=== PATIENT | female | born 1975 | race Caucasian/White ===

== ENCOUNTER → 2016-09-26 | Outpatient (CLI) | payer OTHER ==
[~2016-09-26] MED LIST: ALBUAER2 INH; CARB200T3 PO; CLON1TAB3 PO; ERGO500037 PO; FLUO40CA8 PO; SUMA100T16 PO; TRAZ50TA35 PO; WARF7.5T PO
[2016-09-26 14:36] LABS: BASO % 0.6 %; BASO ABS # 0.03 K/uL (0-0.2); COMPLETE YES; HEMATOCRIT 36.4 % (37-47); LYMPH % 38.7 %; LYMPH ABS # 1.96 K/uL (1.2-3.4); MEAN CELL VOLUME 96.8 fL (80-100); MEAN CORPUSCULAR HEMOGLOBIN 33.2 pg (25-34); MEAN CORPUSCULAR HGB CONC 34.3 g/dl (32-36); MEAN PLATELET VOLUME 9.2 fL (7.4-10.4); MONO % 9.1 %; NEUT % 47.6 %; PLATELET COUNT 303 K/uL (130-400); RED BLOOD COUNT 3.76 M/uL (4.2-5.4); WHITE BLOOD COUNT 5.06 K/uL (4.8-10.8)
[2016-09-26 14:52] LABS: ALT/SGPT 21 U/L (12-78); AST/SGOT 22 U/L (15-37); BLOOD UREA NITROGEN 9 mg/dl (7-18); BUN/CREATININE RATIO 11.2 (10-20); CALCIUM 7.8 mg/dl (8.5-10.1); CARBON DIOXIDE 28 mmol/L (21-32); CHLORIDE 106 mmol/L (98-107); CREATININE 0.76 mg/dl (0.60-1.20); GLUCOSE 83 mg/dl (70-99); POTASSIUM 3.9 mmol/L (3.5-5.1); SODIUM 140 mmol/L (136-145); TRIGLYCERIDES 111 mg/dl (0-150); VERY LOW DENSITY LIPOPROT CALC 22 mg/dl
[2016-09-26 15:01] LABS: ALB/GLOB RATIO 0.9 (0.9-2); ALKALINE PHOSPHATASE 52 U/L (45-117); CHOLESTEROL 217 mg/dl (0-200); CHOLESTEROL/HDL RATIO 2.6; FERRITIN 17.2 ng/ml (8.0-388.0); HDL CHOLESTEROL 82 mg/dl; LDL CHOLESTEROL CALCULATED 113 mg/dl; TOTAL IRON BINDING CAPACITY 254 mcg/dl (250-450)
== END | disposition home or self-care (01) ==
LOC: C.LAB1850 13:18
PROVIDERS: ATTEND Family Medicine
DX: E03.9 Hypothyroidism, unspecified (principal); E55.9 Vitamin D deficiency, unspecified; E78.5 Hyperlipidemia, unspecified; M79.7 Fibromyalgia; D64.9 Anemia, unspecified

== ENCOUNTER → 2017-01-15 | Outpatient (CLI) | payer OTHER ==
--- NOTE | 2017-01-15 17:47 | DIAGNOSTIC IMAGING REPORT ---
CHEST AND ABDOMEN 2 VIEWS HISTORY: Generalized abdominal pain. COMPARISON: Chest 01/25/2015. FINDINGS: The lungs are clear. The cardiomediastinal silhouette is within normal limits. There is no pneumoperitoneum or pneumatosis. The bowel gas pattern is unremarkable. No evidence for bowel obstruction. No pathologic calcifications. Small to moderate amount of well-formed stool seen within the colon. IMPRESSION: No acute cardiopulmonary process. No evidence for bowel obstruction. Electronically signed by: Shaun Chavira M.D. 01/15/2017 5:45 PM Dictated Date/Time: 01/15/2017 5:43 PM
== END | disposition home or self-care (01) ==
LOC: C.RADBC 16:21
PROVIDERS: ATTEND Family Medicine
DX: R10.9 Unspecified abdominal pain (principal); K59.00 Constipation, unspecified

== ENCOUNTER → 2017-02-05 | Outpatient (CLI) | payer OTHER ==
[2017-02-10 16:38] LABS: B2 GLYCOPROTEIN IGA <9 SAU (<=20); B2 GLYCOPROTEIN IGG <9 SGU (<=20); B2 GLYCOPROTEIN IGM <9 SMU (<=20); LUPUS ANTICOAGULANT** TC36573X Negative (Negative)
== END | disposition home or self-care (01) ==
LOC: C.LAB1850 16:03
PROVIDERS: ATTEND Nurse Practitioner Family
DX: D68.9 Coagulation defect, unspecified (principal)

== ENCOUNTER 2018-02-04 18:31 | Emergency (ER) | payer OTHER ==
[~2018-02-04] VITALS: Ht 167.6 cm; Wt 77.4 kg
[2018-02-04 18:38] VITALS: Ht 167.6 cm; Wt 77.4 kg
[2018-02-04] MEDS ORDERED: FLUO20CA20 PO (19:55)
[2018-02-04] MEDS ORDERED: QUET1TAB30 PO (19:55)
[2018-02-04] MEDS ORDERED: LYR50 PO (19:55)
[2018-02-04] MEDS ORDERED: VNTHFA/IN INH (19:55)
[2018-02-04] MEDS ORDERED: TRAZ1TAB52 PO (19:55)
[2018-02-04] MEDS ORDERED: FERR1TAB13 PO (19:55)
[2018-02-04 20:01] LABS: ALBUMIN 3.5 gm/dl (3.4-5.0); ALKALINE PHOSPHATASE 53 U/L (45-117); ALT/SGPT 17 U/L (12-78); AST/SGOT 11 U/L (15-37); BLOOD UREA NITROGEN 10 mg/dl (7-18); CALCIUM 8.1 mg/dl (8.5-10.1); CARBON DIOXIDE 31 mmol/L (21-32); GLUCOSE 79 mg/dl (70-99); POTASSIUM 3.7 mmol/L (3.5-5.1); SODIUM 137 mmol/L (136-145); TOTAL PROTEIN 7.1 gm/dl (6.4-8.2)
[2018-02-04 20:33] LABS: BASO % 0.5 %; BASO ABS # 0.03 K/uL (0-0.2); EOS % 3.6 %; EOS ABS # 0.22 K/uL (0-0.5); HEMATOCRIT 34.5 % (37-47); HEMOGLOBIN 11.8 g/dL (12.0-16.0); IG# 0.01 K/uL (0.00-0.02); LYMPH % 32.3 %; MEAN CELL VOLUME 96.9 fL (80-100); MEAN CORPUSCULAR HEMOGLOBIN 33.1 pg (25-34); MEAN CORPUSCULAR HGB CONC 34.2 g/dl (32-36); MEAN PLATELET VOLUME 9.1 fL (7.4-10.4); MONO % 9.5 %; MONO ABS # 0.59 K/uL (0.11-0.59); NEUT % 53.9 %; NEUT ABS # 3.34 K/uL (1.4-6.5); PLATELET COUNT 295 K/uL (130-400); RED CELL DISTRIBUTION WIDTH CV 12.4 % (11.5-14.5); RED CELL DISTRIBUTION WIDTH SD 44.3 fL (36.4-46.3); WHITE BLOOD COUNT 6.19 K/uL (4.8-10.8)
--- NOTE | 2018-02-04 22:10 | EMERGENCY ROOM VISIT NOTE ---
History Report prepared by Shruti: Jamaica Webb Under the Supervision of: Dr. Ashley Marrero D.O. First contact with patient: 18:42 Chief Complaint: MENTAL HEALTH EVALUATION Stated Complaint: ACUTE CRISIS OF MENTAL ILLNESS REF BY History of Present Illness The patient is a 42 year old female who presents to the Emergency Room with complaints of persistent suicidal ideation starting [employer]. The patient has a history of suicide attempt at age 25. The patient was seen by her psychiatrist today and referred to the ED. The patient has had thoughts of throwing herself off of a building. She notes that her father 1 month ago and is going through a divorce. She is having difficulty coping with the stressors in her life. She denies having any thoughts of hurting others. She notes a history of cutting herself, but has not done so recently. She reports a history of chronic migraines which have been worse over the past month with vomiting. She has a history of IBS and fibromyalgia. She feels like she is having difficulty functioning. She has chronic back pain from scoliosis and degenerative arthritis. She has a history of PE with unknown cause. She is no longer on blood thinners. She has a history of costochondritis. She has had some chest pain recently. She notes that she was recently started on Lyrica. 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 Review of Systems See HPI for pertinent positives & negatives. A total of 10 systems reviewed and were otherwise negative. Past Medical & Surgical Medical Problems: (1) Asthma (2) Costochondritis (3) Fibromyalgia (4) Kidney disease (5) Pulmonary emboli Family History FH: heart disease FH: lung disease FHx: pulmonary embolism Hypertension Social History Smoking Status: Current Every Day Smoker Alcohol Use: none Marital Status: single Housing Status: lives with family Occupation Status: employed Current/Historical Medications Scheduled Carbamazepine (Tegretol), 400 MG PO AMPM Clonazepam (Klonopin), 1 MG PO TID Ferrous Sulfate (Kp Ferrous Sulfate), 325 MG PO BID Fluoxetine Hcl (Pmdd) (Fluoxetine), 40 MG PO DAILY Pregabalin (Lyrica), 50 MG PO BID Quetiapine Fumarate (Seroquel), 25 MG PO BID Scheduled PRN Albuterol Hfa (Ventolin Hfa), 2 PUFFS INH Q4H PRN for Shortness of Breath Sumatriptan Succinate (Imitrex), 100 MG PO UD PRN for Migraine Trazodone Hcl (Desyrel), 150 MG PO HS PRN for Sleep Allergies Coded Allergies: Ketorolac Tromethamine (Verified Allergy, Severe, "CHEST TIGHTENS, FEEL ANXIOUS"., 02/04/18) Lamotrigine (Verified Allergy, Severe, "SEVERE ANXIETY ATTACK"., 02/04/18) Tramadol (Verified Allergy, Severe, "CHEST TIGHTENS, FEEL ANXIOUS"., ) Cephalexin (Verified Allergy, Intermediate, RASH, 02/04/18) Physical Exam Vital Signs Date Time Temp Pulse Resp B/P (MAP) Pulse Ox O2 Delivery O2 Flow Rate FiO2 02/05/18 07:31 62 18 104/58 99 Room Air 02/04/18 23:25 65 18 94/52 99 Room Air 02/04/18 20:55 72 18 93/54 96 Room Air 02/04/18 18:38 36.6 70 18 109/64 98 Room Air Physical Exam GENERAL: alert, well appearing, well nourished, no distress, non-toxic EYE EXAM: normal conjunctiva, PERRL and EOM's grossly intact OROPHARYNX: no exudate, no erythema, lips, buccal mucosa, and tongue normal and mucous membranes are moist NECK: supple, no nuchal rigidity, no adenopathy, non-tender LUNGS: Clear to auscultation. Normal chest wall mechanics HEART: no murmurs, S1 normal and S2 normal ABDOMEN: abdomen soft, non-tender, normo-active bowel sounds, no masses, no rebound or guarding. BACK: Back is symmetrical on inspection and there is no deformity, no midline tenderness, no CVA tenderness. SKIN: no rashes and no bruising UPPER EXTREMITIES: upper extremities are grossly normal. LOWER EXTREMITIES: No pitting edema. NEURO EXAM: Normal sensorium, cranial nerves II-XII grossly intact, normal speech, no gross weakness of arms, no gross weakness of legs. PSYCH: Flat affect. Positive depression, positive SI with plan, no HI, no hallucinations. Medical Decision & Procedures Laboratory Results 02/04/18 19:18 Red Blood Count 3.56, Mean Corpuscular Volume 96.9, Mean Corpuscular Hemoglobin 33.1, Mean Corpuscular Hemoglobin Concent 34.2, Mean Platelet Volume 9.1, Neutrophils (%) (Auto) 53.9, Lymphocytes (%) (Auto) 32.3, Monocytes (%) (Auto) 9.5, Eosinophils (%) (Auto) 3.6, Basophils (%) (Auto) 0.5, Neutrophils # (Auto) 3.34, Lymphocytes # (Auto) 2.00, Monocytes # (Auto) 0.59, Eosinophils # (Auto) 0.22, Basophils # (Auto) 0.03 02/04/18 19:18 Test 02/04/18 19:18 02/04/18 19:42 White Blood Count 6.19 K/uL (4.8-10.8) Red Blood Count 3.56 M/uL (4.2-5.4) Hemoglobin 11.8 g/dL (12.0-16.0) Hematocrit 34.5 % (37-47) Mean Corpuscular Volume 96.9 fL (80-100) Mean Corpuscular Hemoglobin 33.1 pg (25-34) Mean Corpuscular Hemoglobin Concent 34.2 g/dl (32-36) Platelet Count 295 K/uL (130-400) Mean Platelet Volume 9.1 fL (7.4-10.4) Neutrophils (%) (Auto) 53.9 % Lymphocytes (%) (Auto) 32.3 % Monocytes (%) (Auto) 9.5 % Eosinophils (%) (Auto) 3.6 % Basophils (%) (Auto) 0.5 % Neutrophils # (Auto) 3.34 K/uL (1.4-6.5) Lymphocytes # (Auto) 2.00 K/uL (1.2-3.4) Monocytes # (Auto) 0.59 K/uL (0.11-0.59) Eosinophils # (Auto) 0.22 K/uL (0-0.5) Basophils # (Auto) 0.03 K/uL (0-0.2) RDW Standard Deviation 44.3 fL (36.4-46.3) RDW Coefficient of Variation 12.4 % (11.5-14.5) Immature Granulocyte % (Auto) 0.2 % Immature Granulocyte # (Auto) 0.01 K/uL (0.00-0.02) Anion Gap 1.0 mmol/L (3-11) Est Creatinine Clear Calc Drug Dose 87.3 ml/min Estimated GFR () 92.7 Estimated GFR (Non- 80.0 BUN/Creatinine Ratio 11.3 (10-20) Calcium Level 8.1 mg/dl (8.5-10.1) Total Bilirubin 0.3 mg/dl (0.2-1) Direct Bilirubin < 0.1 mg/dl (0-0.2) Aspartate Amino Transf (AST/SGOT) 11 U/L (15-37) Alanine Aminotransferase (ALT/SGPT) 17 U/L (12-78) Alkaline Phosphatase 53 U/L (45-117) Troponin I < 0.015 ng/ml (0-0.045) Total Protein 7.1 gm/dl (6.4-8.2) Albumin 3.5 gm/dl (3.4-5.0) Thyroid Stimulating Hormone (TSH) 1.730 uIu/ml (0.300-4.500) Carbamazepine (Tegretol) Level 9.5 mcg/ml (4-12) Ethyl Alcohol mg/dL < 3.0 mg/dl (0-3) Urine Color DK YELLOW Urine Appearance CLEAR (CLEAR) Urine pH 5.0 (4.5-7.5) Urine Specific [place] 1.027 (1.000-1.030) Urine Protein NEG (NEG) Urine Glucose (UA) NEG (NEG) Urine Ketones TRACE (NEG) Urine Occult Blood NEG (NEG) Urine Nitrite NEG (NEG) Urine Bilirubin NEG (NEG) Urine Urobilinogen NEG (NEG) Urine Leukocyte Esterase TRACE (NEG) Urine WBC (Auto) 1-5 /hpf (0-5) Urine RBC (Auto) 0-4 /hpf (0-4) Urine Hyaline Casts (Auto) 1-5 /lpf (0-5) Urine Epithelial Cells (Auto) 10-20 /lpf (0-5) Urine Bacteria (Auto) NEG (NEG) Urine Opiates Screen NEG (NEG) Urine Methadone, Qualitative NEG (NEG) Urine Barbiturates NEG (NEG) Urine Phencyclidine (PCP) Level NEG (NEG) Ur Amphetamine/Methamphetamine NEG (NEG) MDMA (Ecstasy) Screen POS (NEG) Urine Benzodiazepines Screen POS (NEG) Urine Cocaine Metabolite NEG (NEG) Urine Marijuana (THC) NEG (NEG) Laboratory results per my review. Medications Administered Medications (Trade) Dose Ordered Sig/[place] Route Start Time Stop Time Status Last Admin Dose Admin Nicotine (Nicoderm Cq 21MG Patch) 1 patch NOW STAT TD 02/04/18 22:31 02/04/18 22:33 DC 02/04/18 23:15 1 PATCH Acetaminophen (Tylenol Tab) 650 mg NOW STAT PO 02/04/18 22:31 02/04/18 22:33 DC 02/04/18 23:10 650 MG Trazodone HCl (Desyrel Tab) 150 mg NOW ONCE PO 02/04/18 22:45 02/04/18 22:46 DC 02/04/18 23:15 150 MG Carbamazepine (Tegretol Tab) 400 mg NOW ONCE PO 02/04/18 22:45 02/04/18 22:46 DC 02/04/18 23:15 400 MG Quetiapine Fumarate (seroQUEL TAB) 25 mg NOW STAT PO 02/04/18 22:35 02/04/18 22:37 DC 02/04/18 23:15 25 MG Clonazepam (Klonopin Tab) 1 mg STK-MED ONCE .ROUTE 02/04/18 22:43 02/04/18 22:44 DC 02/04/18 23:15 1 MG Pregabalin (Lyrica Cap) 50 mg NOW STAT PO 02/04/18 23:07 02/04/18 23:08 DC 02/04/18 23:23 50 MG Carbamazepine (Tegretol Tab) 400 mg NOW ONCE PO 02/05/18 05:30 02/05/18 05:33 DC 02/05/18 09:37 400 MG Clonazepam (Klonopin Tab) 1 mg NOW STAT PO 02/05/18 05:29 02/05/18 05:33 DC 02/05/18 09:39 1 MG Pregabalin (Lyrica Cap) 50 mg NOW STAT PO 02/05/18 05:29 02/05/18 05:33 DC 02/05/18 09:39 50 MG Quetiapine Fumarate (seroQUEL TAB) 25 mg NOW STAT PO 02/05/18 05:29 02/05/18 05:33 DC 02/05/18 09:39 25 MG Fluoxetine HCl (Prozac Cap) 40 mg NOW ONCE PO 02/05/18 05:30 02/05/18 05:33 DC 02/05/18 09:38 40 MG Acetaminophen (Tylenol Tab) 1,000 mg NOW STAT PO 02/05/18 09:46 02/05/18 09:48 DC 02/05/18 10:20 1,000 MG ECG Per My Interpretation Indication: chest pain Rate (beats per minute): 61 Rhythm: sinus rhythm Findings: no acute ischemic change, no ectopy, other (normal axis, normal intervals) ED Course 1844: The patient was evaluated in room A5. A complete history and physical exam was performed. 2344: Pt signed out to Dr. Fatima. Psych pillowcase turner has written a petitioning statement but pt at this time has been voluntary. Medical Decision Differential diagnoses considered include mood disorder, infection, hypoglycemia , electrolyte abnormalities, cardiac sources, intracerebral event, toxicologic, neurologic, as well as others. Patient sent here due to worsening depression and suicidal ideation with plan. Patient does see a psychiatrist. I do feel patient requires inpatient psychiatric treatment at this time. Patient is here voluntarily, if she chooses to live I feel a 302 should be pursued. Psychiatric casework supervisor is aware and is continuing attempts at placement. Patient signed out to maintenance supervisor 2nd shift awaiting placement in transfer. Medication Reconcilliation Current Medication List: was personally reviewed by me Blood Pressure Screening Patient's blood pressure: Normal blood pressure Impression Primary Impression: Depression Additional Impression: Suicidal ideation Scribe Attestation The scribe's documentation has been prepared under my direction and personally reviewed by me in its entirety. I confirm that the note above accurately reflects all work, treatment, procedures, and medical decision making performed by me. Departure Information Referrals Farheen Ponce DO (PCP) Patient Instructions My [facility] Problem Qualifiers Primary Impression: Depression Depression Type: unspecified Qualified Codes: F32.9 - Major depressive disorder, single episode, unspecified
[2018-02-04] MEDS ORDERED: ACETAMINOPHEN 325 MG TAB PO STA (22:31)
[2018-02-04] MEDS ORDERED: NICOTINE 21 MG/24 HR TDSY TD STA (22:31)
[2018-02-04] MEDS ORDERED: QUETIAPINE FUMARATE 25 MG TAB PO STA (22:35)
[2018-02-04] MEDS ORDERED: CLONAZEPAM 1 MG TAB PO STA (22:35)
[2018-02-04] MEDS ORDERED: CLONAZEPAM 0.5 MG TAB ONE (22:43)
[2018-02-04] MEDS ORDERED: TRAZODONE HCL 50 MG TAB PO ONE (22:45)
[2018-02-04] MEDS ORDERED: CARBAMAZEPINE 200 MG TAB PO ONE (22:45)
[2018-02-04] MEDS ORDERED: PREGABALIN 50 MG CAP PO STA (23:07)
[2018-02-05] MEDS ORDERED: QUETIAPINE FUMARATE 25 MG TAB PO STA (05:29)
[2018-02-05] MEDS ORDERED: PREGABALIN 50 MG CAP PO STA (05:29)
[2018-02-05] MEDS ORDERED: CLONAZEPAM 1 MG TAB PO STA (05:29)
[2018-02-05] MEDS ORDERED: CARBAMAZEPINE 200 MG TAB PO ONE (05:30)
[2018-02-05] MEDS ORDERED: FLUOXETINE HCL 10 MG CAP PO ONE (05:30)
--- NOTE | 2018-02-05 05:32 | EMERGENCY ROOM VISIT NOTE ---
ED Visit Note First contact with patient: 03:16 This case was signed out to me at change of shift awaiting bed placement. All morning medications are ordered. The patient is resting comfortably at this time. 0250: the patient continues to sleep at this time. She was referred to the [facility]. We are waiting to hear if she was accepted there. She is willing to go voluntarily. The patient was denied at the [facility]. The bed search is currently suspended. I will order her morning medications. The case will be signed out to Dr. Tolbert at change of shift.
[2018-02-05] MEDS ORDERED: ACETAMINOPHEN 500 MG TAB PO STA (09:46)
--- NOTE | 2018-02-05 11:18 | EMERGENCY ROOM VISIT NOTE ---
ED Visit Note Patient signed out to me at change of shift. History and physical verified by me. Patient has been accepted at the [facility].
[2018-02-05] MEDS ORDERED: IBUPROFEN 600 MG TAB PO STA (15:05)
[2018-02-05 15:53] VITALS: BP 87/49; PULSE 74; TEMP 36.6; O2SAT 98
== END 2018-02-05 15:53 ==
LOC: C.EDB 18:35 → C.EDA 02-05 15:53
DX: F32.9 Major depressive disorder, single episode, unspecified (principal); R45.851 Suicidal ideations; G43.909 Migraine, unspecified, not intractable, without status migrainosus; R07.9 Chest pain, unspecified; M54.9 Dorsalgia, unspecified; G89.29 Other chronic pain; M41.9 Scoliosis, unspecified; F17.200 Nicotine dependence, unspecified, uncomplicated; Z79.899 Other long term (current) drug therapy; Z88.1 Allergy status to other antibiotic agents; Z88.5 Allergy status to narcotic agent; Z88.8 Allergy status to other drugs, medicaments and biological substances

== ENCOUNTER 2019-07-11 18:41 | Inpatient (IN) ==
[2019-07-11] MEDS ORDERED: ONDANSETRON INJ 2 MG/ML 2 ML VIAL IV STA ×2 (20:08→20:38)
[2019-07-11] MEDS ORDERED: ONDANSETRON INJ 2 MG/ML 2 ML VIAL ONE (20:09)
[2019-07-11 20:14] LABS: Basophils # (auto) 0.04 K/uL (0-0.2); Basophils % (auto) 0.5 %; Eosinophils # (auto) 0.14 K/uL (0-0.5); Eosinophils % (auto) 1.7 %; Hematocrit (blood only) 35.1 % (37-47); Hemoglobin 11.9 g/dL (12.0-16.0); Immature Granulocytes # (auto) 0.01 K/uL (0.00-0.02); Immature Granulocytes % (auto) 0.1 %; Lymphocytes # (auto) 1.72 K/uL (1.2-3.4); Lymphocytes % (auto) 20.9 %; Mean Corpuscular Hemoglobin 32.5 pg (25-34); Mean Corpuscular Hgb Conc 33.9 g/dL (32-36); Mean Corpuscular Volume 95.9 fL (80-100); Mean Platelet Volume 9.1 fL (7.4-10.4); Monocytes # (auto) 0.69 K/uL (0.11-0.59); Monocytes % (auto) 8.4 %; Neutrophils # (auto) 5.64 K/uL (1.4-6.5); Neutrophils % (auto) 68.4 %; Platelet Count 361 K/uL (130-400); RDW Coefficient of Variation 13.6 % (11.5-14.5); RDW Standard Deviation 47.9 fL (36.4-46.3); Red Blood Count 3.66 M/uL (4.2-5.4); White Blood Count 8.24 K/uL (4.8-10.8)
[2019-07-11 20:30] LABS: Albumin Level 3.7 gm/dl (3.4-5.0); BUN Creatinine Ratio 10.5 (10-20); Calcium 8.9 mg/dl (8.5-10.1); Creatinine Clr Calc Pharmacy 99.8 ml/min; Est GFR (Non-African American) 92.3; Potassium 3.3 mmol/L (3.5-5.1)
[2019-07-11 20:33] LABS: Albumin Globulin Ratio 0.9 (0.9-2); Bilirubin,Total 0.2 mg/dl (0.2-1); Globulin 4.3 gm/dl (2.5-4.0)
[2019-07-11] MEDS ORDERED: SODIUM CHLORIDE 0.9% 1000ML 2,000 ML IV ONE (20:38)
[2019-07-11] MEDS ORDERED: ACETAMINOPHEN 500 MG TAB PO STA (20:38)
[2019-07-11] MEDS ORDERED: DiphenhydrAMINE HCL 50 MG/ML VIAL IV STA (20:38)
--- NOTE | 2019-07-11 21:44 | XRay Report ---
XR chest 1V portable HISTORY: fever COMPARISON: Chest 06/07/2019. FINDINGS: The lungs are clear. Cardiac silhouette is normal in size. No pleural effusions. No pneumot horax. IMPRESSION: No acute process. Electronically signed by: Shaun Chavira M.D. 07/11/2019 9:43 PM
[2019-07-11] MEDS ORDERED: IOVERSOL 100ml IV PRN (22:02)
[2019-07-11] MEDS ORDERED: IBUPROFEN 600 MG TAB PO STA (22:33)
--- NOTE | 2019-07-11 22:52 | CT Scan Report ---
ABDOMEN AND PELVIS CT WITH IV CONTRAST CT DOSE: 839.00 mGycm HISTORY: Lower abdominal pain, fever, abd infection, sepsis TECHNIQUE: Multiaxial CT images of the abdomen and pelvis were performed following the use of intrave nous contrast. A dose lowering technique was utilized adhering to the principles of ALARA. COMPARISON STUDY: Abdomen and pelvis CT 04/25/2019. FINDINGS: The lung bases are clear. No pneumoperitoneum. No pneumatosis. No suspicious lytic are michelle tic osseous lesions. Apparent filling defect seen within a right lower lobe segmental pulmonary arter y best seen on image 4. This is consistent with a pulmonary embolus. The gallbladder is contracted. N o hepatic or splenic masses. The adrenal glands, pancreas, and kidneys are unremarkable. The bladder is unremarkable. A 1.8 cm subserosal fibroid in the posterior wall of the uterus. The ovaries are unr emarkable. Normal appendix. No retroperitoneal lymphadenopathy. No pelvic free fluid. No bowel wall t hickening or obstruction. The midline incisional fluid collection has essentially resolved in the int erval. Subcutaneous fat stranding and soft tissue thickening along the supraumbilical midline incisio n. This favors postoperative granulation tissue. Infectious cellulitis/phlegmon could also have a sim ilar appearance in the appropriate clinical setting. The IVC and iliac veins are patent. IMPRESSION: 1. Right lower lobe pulmonary embolus. This can be confirmed with follow-up dedicated chest CTA. 2. The midline incisional fluid collection has essentially resolved in the interval. Subcutaneous fat stranding and soft tissue thickening along the supraumbilical midline incision. This favors postoper ative granulation tissue. Infectious cellulitis/phlegmon could also have a similar appearance in the appropriate clinical setting. 3. No bowel wall thickening or obstruction. 4. Normal appendix. Electronically signed by: Shaun Chavira M.D. 07/11/2019 10:49 PM
--- NOTE | 2019-07-11 23:42 | Emergency Department Note ---
Entered by Marcell Mayfield acting as a scribe for History of Present Illness General Chief complaint: Illness Stated complaint: FEVER Time Seen by Provider: 07/11/19 20:31 Source: patient History of Present Illness Provider complaint: Fevers Onset (ago): day(s) 5 Location: abdomen Severity: similar to prior episodes Pain Consistency: + intermittent Maximum Pain Intensity: 9 Current Pain Intensity: 9 Associated symptoms: + fever/chills, + nausea/vomiting (No vomiting) and + other (Diarrhea) The patient is a 44 year old female who presents to the Emergency Room with complaints of intermittent low grade fevers that have been persistent over the past 5 days. 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 The patient reports that she is concerned that she has another infection since she has been running these fevers as well as being constantly nauseous. The patient also endorses diarrhea. The patient states she has some generalized abdominal pain as well that she rates a 9/10. She notes that she also has head pressure and ear pain as well as some facial swelling on the right side. The patient reports that her last surgical site infection was April 29 and she has not been on any antibiotics since this time. The patient recalls that she has gone septic as a result of an infection and notes she feels similar to when she went septic. The patient states that the wound has recently reopened so she has been changing the packing 1-2 times per day. The patient reports that her infections have not gone deeper than the abdominal wall. The patient denies any vomiting or urinary symptoms. Home Medications Home Medications Medication Instructions Recorded Confirmed Type albuterol sulfate [Ventolin HFA] 2 puff INHALATION Q4H PRN 07/12/18 07/11/19 History carbamazepine 400 mg PO BID 07/12/18 07/11/19 History clonazepam 0.5 mg PO TID 07/12/18 07/11/19 History fluoxetine 40 mg PO DAILY 07/12/18 07/11/19 History pregabalin [Lyrica] 75 mg PO BID 07/12/18 07/11/19 History sumatriptan succinate 100 mg PO DIRECTED PRN 07/12/18 07/11/19 History omeprazole 20 mg PO DAILY PRN 03/26/19 07/11/19 History ibuprofen 600 mg PO Q6H PRN 06/07/19 07/11/19 History Allergies Allergy/AdvReac Type Severity Reaction Status Date / Time ketorolac Allergy Severe "CHEST Verified 07/11/19 19:45 TIGHTENS, FEEL ANXIOUS". tramadol Allergy Severe "CHEST Verified 07/11/19 19:45 TIGHTENS, FEEL ANXIOUS". cephalexin Allergy Intermediate RASH Verified 07/11/19 19:45 lamotrigine AdvReac Severe "SEVERE Verified 07/11/19 19:45 ANXIETY ATTACK". Past Med/Surg History Medical History Pulmonary emboli (Resolved) Asthma (Chronic) Kidney disease (Chronic) Fibromyalgia (Chronic) Costochondritis (Resolved) Infection Sepsis Surgical History History of colectomy Family History Other Heart disease Hypertension Lung disease Pulmonary embolism Social History marital status: single Current Living Situation: Family current occupational status: employed Feels Safe at Home: Yes Smoking Status: Current every day smoker Review of Systems See HPI for pertinent positives & negatives. and A total of 10 systems reviewed and were otherwise negative Physical Exam Vital Signs Vital Signs - 24 hr 07/11/19 19:10 07/11/19 19:57 07/11/19 21:01 Temperature 36.8 C Temperature Source Oral Sepsis Recent Fever Within 48 Hours No Sepsis Action Taken by Nursing No Action Required Pulse Rate 100 H Pulse Rate [Apical] 81 68 Respiratory Rate 18 24 20 Respiratory Effort / Characteristics Non-Labored Respiratory Depth Normal Blood Pressure 163/93 H Blood Pressure [Left Arm] 149/75 H 139/82 Blood Pressure Mean 116 Blood Pressure Mean [Left Arm] 99 101 Blood Pressure Position [Left Arm] Pulse Oximetry 100 97 97 Oxygen Delivery Method Room Air Room Air Room Air 07/11/19 22:05 07/11/19 23:00 07/12/19 00:14 Temperature Temperature Source Sepsis Recent Fever Within 48 Hours Sepsis Action Taken by Nursing Pulse Rate 65 Pulse Rate [Apical] 63 63 Respiratory Rate 19 14 19 Respiratory Effort / Characteristics Respiratory Depth Blood Pressure 151/81 H Blood Pressure [Left Arm] 146/78 H 126/95 Blood Pressure Mean Blood Pressure Mean [Left Arm] 100 105 Blood Pressure Position [Left Arm] Sitting Pulse Oximetry 99 100 99 Oxygen Delivery Method Room Air Room Air Room Air GENERAL: Patient is in no acute distress. HEENT: No acute trauma, normocephalic atraumatic, mucous membranes are dry, no nasal congestion, no scleral icterus. No throat erythema. TMs are clear bilaterally. NECK: No stridor, no adenopathy, no meningismus, trachea is midline. LUNGS: Clear to auscultation bilaterally, no wheeze, no rhonchi, breath sounds equal. HEART: Without murmurs gallops or rubs, regular rate and rhythm. ABDOMEN: Soft, diffusely mildly tender, bowel sounds positive, no hernias, no peritonitis. Healing mid abdominal incision with a wick of packing in one area. No drainage or surrounding erythema. EXTREMITIES: No cyanosis or edema, full range of motion of all the joints without pain or difficulty, no signs for acute trauma. NEUROLOGIC: Oriented x 3, no acute motor or sensory deficits, no focal weakness. SKIN: No rash, no jaundice, no diaphoresis. Course 2032: Past medical records reviewed. The patient was evaluated in room C01B, and a complete history and physical examination were performed. 3: I reevaluated the patient and went over results. We also discussed the treatment plan and she agreed. 2317: I spoke to Dr. Nicholas Alonzo about the patient's case. He is going to accept the patient for further evaluation. Consultations Consultation #1: I spoke to Dr. Nicholas Alonzo about the patient's case. He is going to accept the patient for further evaluation. Time: 23:17 Administered Medications Ioversol (Optiray 320 100ml) 92 ml IV ONCE PRN PRN Reason: Interaction Checking Stop: 07/15/19 22:01 Last Admin: 07/11/19 22:03 Dose: 92 ml Documented by: [id number] Discontinued Medications Acetaminophen (Tylenol) 1,000 mg PO NOW STA Stop: 07/11/19 20:39 Last Admin: 07/11/19 20:51 Dose: 1,000 mg Documented by: [id number] Diphenhydramine HCl (Benadryl) 12.5 mg IV NOW STA Stop: 10/20/19 20:39 Last Admin: 07/11/19 20:51 Dose: 12.5 mg Documented by: [id number] Sodium Chloride (Nss 1000ml) 2,000 mls @ 999 mls/hr IV .Q2H1M ONE Stop: 07/11/19 22:38 Last Infusion: 07/11/19 22:40 Dose: 0 mls/hr Documented by: [id number] Admin: 07/11/19 20:50 Dose: 999 mls/hr Documented by: [id number] Ibuprofen (Motrin) 600 mg PO NOW STA Stop: 07/11/19 22:34 Last Admin: 07/11/19 22:39 Dose: 600 mg Documented by: [id number] Ondansetron HCl (Zofran) 4 mg IV NOW STA Stop: 07/11/19 20:09 Last Admin: 07/11/19 20:15 Dose: Not Given Documented by: [id number] Ondansetron HCl (Zofran) Confirm Administered Dose 4 mg .ROUTE .STK-MED ONE Stop: 07/11/19 20:10 Last Admin: 07/11/19 20:15 Dose: 4 mg Documented by: [id number] Ondansetron HCl (Zofran) 4 mg IV NOW STA Stop: 07/11/19 20:39 Last Admin: 07/11/19 20:51 Dose: 4 mg Documented by: [id number] Medical Decision Making Differential Diagnosis Differential Diagnosis includes: Dehydration, viral illness, food borne illness, sepsis, bacteremia, UTI, pneumonia, and electrolyte imbalance, amongst others. Medical Records Attestation: I reviewed the patient's medical records. Home Medications Current Medication List: was personally reviewed by me Laboratory Data Attestation: I reviewed the patient's lab results. Result diagrams: 07/11/19 19:50 07/11/19 19:50 Lab Results 07/11/19 07/11/19 07/11/19 Range/Units 19:50 19:50 19:50 WBC 8.24 (4.8-10.8) K/uL RBC 3.66 L (4.2-5.4) M/uL Hgb 11.9 L (12.0-16.0) g/dL Hct 35.1 L (37-47) % MCV 95.9 (80-100) fL MCH 32.5 (25-34) pg MCHC 33.9 (32-36) g/dL RDW Std Deviation 47.9 H (36.4-46.3) fL RDW Coeff of Joaquín 13.6 (11.5-14.5) % Plt Count 361 (130-400) K/uL MPV 9.1 (7.4-10.4) fL Immature Gran % (Auto) 0.1 % Neut % (Auto) 68.4 % Lymph % (Auto) 20.9 % Canyon % (Auto) 8.4 % Eos % (Auto) 1.7 % Baso % (Auto) 0.5 % Immature Gran # (Auto) 0.01 (0.00-0.02) K/uL Neut # (Auto) 5.64 (1.4-6.5) K/uL Lymph # (Auto) 1.72 (1.2-3.4) K/uL Canyon # (Auto) 0.69 H (0.11-0.59) K/uL Eos # (Auto) 0.14 (0-0.5) K/uL Baso # (Auto) 0.04 (0-0.2) K/uL Sodium 140 (136-145) mmol/L Potassium 3.3 L (3.5-5.1) mmol/L Chloride 107 (98-107) mmol/L Carbon Dioxide 25 (21-32) mmol/L Anion Gap 8.0 (3-11) BUN 8 (7-18) mg/dl Creatinine 0.79 (0.6-1.2) mg/dl Est Cr Clr Drug Dosing 99.8 ml/min Est GFR ( Amer) 107.0 Est GFR (Non-Af Amer) 92.3 BUN/Creatinine Ratio 10.5 (10-20) Glucose 88 (70-99) mg/dl Lactate (0.4-2.0) mmol/L Calcium 8.9 (8.5-10.1) mg/dl Total Bilirubin 0.2 (0.2-1) mg/dl AST 19 (15-37) U/L ALT 26 (12-78) U/L Alkaline Phosphatase 67 (45-117) U/L Total Protein 8.0 (6.4-8.2) gm/dl Albumin 3.7 (3.4-5.0) gm/dl Globulin 4.3 H (2.5-4.0) gm/dl Albumin/Globulin Ratio 0.9 (0.9-2) Procalcitonin < 0.05 (0-0.5) ng/ml 07/11/19 Range/Units 21:50 WBC (4.8-10.8) K/uL RBC (4.2-5.4) M/uL Hgb (12.0-16.0) g/dL Hct (37-47) % MCV (80-100) fL MCH (25-34) pg MCHC (32-36) g/dL RDW Std Deviation (36.4-46.3) fL RDW Coeff of Joaquín (11.5-14.5) % Plt Count (130-400) K/uL MPV (7.4-10.4) fL Immature Gran % (Auto) % Neut % (Auto) % Lymph % (Auto) % Canyon % (Auto) % Eos % (Auto) % Baso % (Auto) % Immature Gran # (Auto) (0.00-0.02) K/uL Neut # (Auto) (1.4-6.5) K/uL Lymph # (Auto) (1.2-3.4) K/uL Canyon # (Auto) (0.11-0.59) K/uL Eos # (Auto) (0-0.5) K/uL Baso # (Auto) (0-0.2) K/uL Sodium (136-145) mmol/L Potassium (3.5-5.1) mmol/L Chloride (98-107) mmol/L Carbon Dioxide (21-32) mmol/L Anion Gap (3-11) BUN (7-18) mg/dl Creatinine (0.6-1.2) mg/dl Est Cr Clr Drug Dosing ml/min Est GFR ( Amer) Est GFR (Non-Af Amer) BUN/Creatinine Ratio (10-20) Glucose (70-99) mg/dl Lactate 0.7 (0.4-2.0) mmol/L Calcium (8.5-10.1) mg/dl Total Bilirubin (0.2-1) mg/dl AST (15-37) U/L ALT (12-78) U/L Alkaline Phosphatase (45-117) U/L Total Protein (6.4-8.2) gm/dl Albumin (3.4-5.0) gm/dl Globulin (2.5-4.0) gm/dl Albumin/Globulin Ratio (0.9-2) Procalcitonin (0-0.5) ng/ml Imaging Data Radiologist's Impression: Radiology results as stated below per my review and the radiologist's interpretation: XR chest 1V portable HISTORY: fever COMPARISON: Chest 06/07/2019. FINDINGS: The lungs are clear. Cardiac silhouette is normal in size. No pleural effusions. No pneumothorax. IMPRESSION: No acute process. Electronically signed by: Shaun Chavira M.D. 07/11/2019 9:43 PM ABDOMEN AND PELVIS CT WITH IV CONTRAST CT DOSE: 839.00 mGycm HISTORY: Lower abdominal pain, fever, abd infection, sepsis TECHNIQUE: Multiaxial CT images of the abdomen and pelvis were performed following the use of intravenous contrast. A dose lowering technique was utilized adhering to the principles of ALARA. COMPARISON STUDY: Abdomen and pelvis CT 04/25/2019. FINDINGS: The lung bases are clear. No pneumoperitoneum. No pneumatosis. No suspicious lytic are blastic osseous lesions. Apparent filling defect seen within a right lower lobe segmental pulmonary artery best seen on image 4. This is consistent with a pulmonary embolus. The gallbladder is contracted. No hepatic or splenic masses. The adrenal glands, pancreas, and kidneys are unremarkable. The bladder is unremarkable. A 1.8 cm subserosal fibroid in the posterior wall of the uterus. The ovaries are unremarkable. Normal appendix. No retroperitoneal lymphadenopathy. No pelvic free fluid. No bowel wall thickening or obstruction. The midline incisional fluid collection has essentially resolved in the interval. Subcutaneous fat stranding and soft tissue thickening along the supraumbilical midline incision. This favors postoperative granulation tissue. Infectious cellulitis/phlegmon could also have a similar appearance in the appropriate clinical setting. The IVC and iliac veins are patent. IMPRESSION: 1. Right lower lobe pulmonary embolus. This can be confirmed with follow-up dedicated chest CTA. 2. The midline incisional fluid collection has essentially resolved in the interval. Subcutaneous fat stranding and soft tissue thickening along the supraumbilical midline incision. This favors postoperative granulation tissue. Infectious cellulitis/phlegmon could also have a similar appearance in the appropriate clinical setting. 3. No bowel wall thickening or obstruction. 4. Normal appendix. Electronically signed by: Shaun Chavira M.D. 07/11/2019 10:49 PM ECG Data Attestation: I personally reviewed and interpreted this ECG as follows: Indication: abdominal pain Rate (beats per minute): 74 Rhythm: normal sinus Findings: + other (QTC 415); no PAC, no PVC, no ST elevation and no ectopy Blood Pressure Blood Pressure Findings: Elevated blood pressure Blood Pressure Disposition: further management by hospitalist MDM Narrative There is no leukocytosis. The patient does not have any worrisome anemia. No significant electrolyte abnormality or kidney failure. No worrisome liver enzyme elevation. Lactic acid level and procalcitonin levels returned normal, this certainly makes sepsis less likely. Chest film did not show pneumonia or CHF. Urinalysis is pending. Abdominal and pelvis CT shows improvement of the abdominal wall infection. No bowel obstruction, no abdominal abscess was seen. A lower lung PE was suspected. The patient received oral Tylenol, IV Benadryl, oral ibuprofen. She received IV Zofran for nausea. She was given IV saline for hydration. Given the patient's recent history, given her recent admissions and complications, I do think a hospital stay would be warranted. She needs a PE/DVT work-up. She needs anticoagulation. She had a PE years ago. She is no longer on anticoagulation. I spoke to the patient and case management. I spoke with the on-call hospita list. The patient is currently resting comfortably. In short, I am not sure how this finding of PE relates to her presentation. The finding though is concerning and requires further inpatient work-up and care. Impression & Plan Pulmonary embolism, Dehydration, Diffuse abdominal pain, History of sepsis Discharge Plan Visit Data Chief Complaint: Illness Stated Complaint: FEVER ED Provider: Cristian Bañuelos Discharge Problem: Pulmonary embolism, Dehydration, Diffuse abdominal pain, History of sepsis Patient Disposition: Being Evaluated by Hospitalist Discharge Instructions Interventions: ED Discharge Assessment Last Done: 07/12/19 00:14 Forms Stand Alone Forms: My [employer] Prescriptions Prescriptions: No Action ibuprofen 200 mg Tablet 600 mg PO Q6H PRN (Reason: Pain) RF: 0 sumatriptan succinate 100 mg tablet 100 mg PO DIRECTED PRN (Reason: Migraine Headache) RF: 0 clonazepam 0.5 mg tablet 0.5 mg PO TID RF: 0 carbamazepine 200 mg tablet 400 mg PO BID RF: 0 fluoxetine 20 mg capsule 40 mg PO DAILY RF: 0 pregabalin [Lyrica] 75 mg capsule 75 mg PO BID RF: 0 albuterol sulfate [Ventolin HFA] 90 mcg/actuation Hfa Aerosol Inhaler 2 puff INHALATION Q4H PRN (Reason: Shortness Of Breath) RF: 0 omeprazole 20 mg capsule,delayed release(DR/EC) 20 mg PO DAILY PRN (Reason: Acid Reflux) RF: 0 Referrals Referrals: Dawson Edwards MD [Primary Care Provider] - Discharge Problem: Pulmonary embolism Qualifiers: Pulmonary embolism type: unspecified Chronicity: acute Acute cor pulmonale presence: unspecified Qualified Code(s): I26.99 - Other pulmonary embolism without acute cor pulmonale The scribe's documentation has been prepared under my direction and personally reviewed by me in its entirety. I confirm that the note above accurately reflects all work, treatment, procedures, and medical decision making performed by me.
[2019-07-12] MEDS ORDERED: NITROGLYCERIN SL 0.4 MG/TAB TAB SL PRN (00:53)
[2019-07-12] MEDS ORDERED: PANTOprazole 40 MG TAB PO PRN (00:53)
[2019-07-12] MEDS ORDERED: SUMAtriptan succinate 100 MG TAB PO PRN (00:53)
[2019-07-12] MEDS ORDERED: ALBUTEROL HFA 8 GM INHALER INH PRN (00:53)
[2019-07-12] MEDS ORDERED: ACETAMINOPHEN 325 MG TAB PO PRN (00:53)
[2019-07-12] MEDS ORDERED: HEPARIN IV BOLUS 5,000 UNITS in SYRINGE 0 ML IV ONE (01:45)
--- NOTE | 2019-07-12 02:07 | History and Physical Report ---
DATE OF ADMISSION: 07/11/2019 CHIEF COMPLAINT: Abdominal pain, chest pain, low grade fever. HISTORY OF PRESENT ILLNESS: This is a 44-year-old female with past medical history significant for fibromyalgia, bipolar disorder, migraines, GERD. 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 She received broad spectrum antibiotics and she was discharged on Bactrim. Her biopsy of the pancreatic mass came as benign as per patient.. 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 Again about last week, she is again having low-grade temperatures like 99 and she is having abdominal pain. She gets abdominal pain on and off. There is still some drainage from her abdominal wound of the abdominal incision site.Lately she is not sleeping well in the night. She does sit up in the bed and she is also having some chest pain and she is short of breath and takes deep breath. She was worried that she is getting again sepsis from her abscess, so she came to the ER. She still has a mild drainage of abdominal wound site but is hemodynamically stable, afebrile, no leukocytosis. CT scan of the abdomen and pelvis was done, which showed midline incisional fluid collection was actually resolved but she also does show right lower lobe pulmonary embolus, so we are called for admission. Currently resting comfortably and hemodynamically stable. Denies any headache, no dizziness. She had some blurred vision, had double vision yesterday but resolved now , had some congestion on the face. No sore throat, no cough, no nausea, no vomiting. Appetite is not that great. No diarrhea or constipation, no blood in stool or black stools. No burning micturition, no hematuria. No swelling. She had some ankle swelling that resolved. No rash. ALLERGIES: KETOROLAC, TRAMADOL, CEPHALEXIN, LAMOTRIGINE. PAST MEDICAL HISTORY: As mentioned above. PAST SURGICAL HISTORY: EGD with endoscopic ultrasound, laparoscopic enterectomy with small bowel resection, partial pancreatectomy and colectomy. MEDICATIONS: The patient is on Zofran 4 mg p.o. q. 2 hours p.r.n., Ativan 0.5 mg p.o. p.r.n., Lactinex 1 tablet t.i.d., Lyrica 75 mg p.o. b.i.d., sumatriptan 25 mg p.o. q. 2 hours p.r.n. for migraine, ibuprofen 600mg p.o. q. 8 hours p.r.n., Tylenol 1000 mg every 6 hours p.r.n., albuterol 1 puff as needed, Tegretol-XR 400 mg p.o. b.i.d., Klonopin 0.5 mg p.o. t.i.d., fluoxetine 40 mg p.o. daily. FAMILY HISTORY: No family history on file. SOCIAL HISTORY: Currently living with his mother. Smokes cigarettes. No alcohol use, no drug use. REVIEW OF SYMPTOMS: As per HPI. Rest of review of systems is negative. PHYSICAL EXAMINATION: GENERAL: The patient is of moderate build, not in acute distress. VITAL SIGNS: Temperature 36.8, pulse 63, respiratory rate 14, blood pressure 126/95, oxygen 100% on room air. HEENT: No pallor, no icterus. Pupils equal, round, and reactive to light. NECK: No JVD, no neck masses, no carotid bruit. CARDIOVASCULAR: S1, S2 heard, regular rate and rhythm, no murmur, no gallop. RESPIRATORY SYSTEM: Normal AP diameter. No accessory muscle use. No wheezing, no crackles. ABDOMEN: Soft, bowel sounds present. Abdominal wound site, small drainage seen. No guarding, no rigidity. No distention. CENTRAL NERVOUS SYSTEM: Cranial nerves II-XII grossly nonfocal. EXTREMITIES: No edema, no erythema. LABORATORY DATA: WBC 8.2, hemoglobin 11.9, hematocrit 35.1, platelets 361. Sodium 140, potassium 3.8, chloride 107, bicarbonate 25, BUN 8, creatinine 0.7, serum glucose 88, lactate 0.7, calcium 8.9, total bilirubin 0.2, AST 19, ALT 26, alkaline phosphatase 67. Procalcitonin less than 0.015. IMAGING: Chest x-ray: No acute process. CT of abdomen and pelvis, right lower lobe pulmonary embolus followup CT of the chest. The midline incisional of fluid collection has essentially resolved in the interval, subcutaneous fat, stranding and soft tissue thickening along the supraumbilical midline incision. This favors postoperative granulation tissue, infectious cellulitis of phlegmon could have a similar appearance in the appropriate clinical setting. No bowel wall thickening or obstruction, normal appendix. ASSESSMENT AND PLAN: This is a 44-year-old female who presents with low grade fever at home and also abdominal pain, chest pain, shortness of breath and found to have pulmonary embolism. 1. Acute pulmonary embolism. The patient recently in March had abdominal surgery for pancreatic mass. Since last 1 week she is feeling low grade fevers and some chest pain, shortness of breath. We could not do CT of the chest because she has already had contrast with a CT of abdomen and pelvis. We will start her on IV heparin. We will follow echocardiogram, lower extremity Doppler.Will do CTA of the chest tomorrow. Pain control with IV morphine p.r.n. 2. Abdominal abscess post surgery for pancreatic mass status post incision and drainage in April and treated with Bactrim, still has some small drainage. Today's CAT scan of the abdomen and pelvis, mostly not concerning, but we will get blood cultures and cultures from the drainage from the wound 3. History of bipolar. Continue her Tegretol and fluoxetine and Klonopin. 4. Migraine, sumatriptan as needed. 5. Gastroesophageal reflux disease, on omeprazole. 6. Deep venous thrombosis prophylaxis. Starting on IV heparin. 7. Hypokalemia, will replace. DISPOSITION: Admit to med/surg tele. Level 1 full code. MTDD
[2019-07-12] MEDS: MoRPHine SULFATE 4 MG/ML 1 ML CARP\\VIAL IV PRN ×3 (02:27→15:43)
[2019-07-12] MEDS: HEPARIN SODIUM/DEXTROSE 25,000 UNITS/500 ML BAG IV SCH (02:34)
[2019-07-12] MEDS ORDERED: PREGABALIN 75 MG CAP PO ONE ×2 (03:04→03:15)
[2019-07-12] MEDS ORDERED: clonazePAM 0.5 MG TAB PO ONE ×2 (03:04→03:15)
[2019-07-12] MEDS: carBAMazepine 200 MG TABLET PO SCH ×3 (03:06→21:08)
[2019-07-12 03:51] LABS: Appearance Urine Clear (Clear); Bilirubin Urine Negative (Negative); Blood Urine Trace (Negative); Color Urine Yellow; Glucose Urine UA Negative (Negative); Ketones Urine Trace (Negative); Leukocyte Esterase Urine Negative (Negative); Nitrite Urine Negative (Negative); Protein Urine Negative (Negative); Specific Gravity Urine <= 1.005 (1.000-1.030); Urobilinogen Urine Negative (Negative)
[2019-07-12 03:59] LABS: Bacteria Urine 1+ (Negative); RBC Urine 0-4 /hpf (0-4)
[2019-07-12] MEDS ORDERED: POTASSIUM CHLORIDE 20 MEQ TABCR PO STA ×2 (04:07→09:03)
[2019-07-12 05:29] LABS: Basophils # (auto) 0.04 K/uL (0-0.2); Basophils % (auto) 0.6 %; Eosinophils # (auto) 0.23 K/uL (0-0.5); Eosinophils % (auto) 3.7 %; Hematocrit (blood only) 31.1 % (37-47); Hemoglobin 10.2 g/dL (12.0-16.0); Lymphocytes # (auto) 2.49 K/uL (1.2-3.4); Lymphocytes % (auto) 39.9 %; Mean Corpuscular Hemoglobin 31.8 pg (25-34); Mean Corpuscular Hgb Conc 32.8 g/dL (32-36); Mean Corpuscular Volume 96.9 fL (80-100); Mean Platelet Volume 8.5 fL (7.4-10.4); Monocytes # (auto) 0.75 K/uL (0.11-0.59); Neutrophils # (auto) 2.73 K/uL (1.4-6.5); Neutrophils % (auto) 43.8 %; Platelet Count 285 K/uL (130-400); RDW Coefficient of Variation 13.5 % (11.5-14.5); Red Blood Count 3.21 M/uL (4.2-5.4); White Blood Count 6.24 K/uL (4.8-10.8)
[2019-07-12 05:50] LABS: BUN Creatinine Ratio 8.1 (10-20); Calcium 7.7 mg/dl (8.5-10.1); Creatinine Clr Calc Pharmacy 115.3 ml/min; Est GFR (African American) 124.4; Est GFR (Non-African American) 107.4; Magnesium 1.9 mg/dl (1.8-2.4); Potassium 3.4 mmol/L (3.5-5.1)
--- NOTE | 2019-07-12 06:44 | Ultrasound Report ---
BILATERAL LOWER EXTREMITY VENOUS DOPPLER CLINICAL HISTORY: dvt? COMPARISON STUDY: Bilateral lower extremity venous Doppler ultrasound July 12, 2018. Right lower extremity venous Doppler ultrasound October 01, 2018. TECHNIQUE: Sonography of the deep venous system of the bilateral lower extremities was performed. Co mpression and augmentation were evaluated. FINDINGS: Note is made of occlusive deep venous thrombus within the right popliteal vein as well as t he right posterior tibial vein. There is no decubitus thrombus within the left lower extremity. IMPRESSION: Occlusive deep venous thrombus within the right popliteal and posterior tibial veins. Electronically signed by: Abdelrahman Jaimes M.D. 07/12/2019 6:43 AM
[2019-07-12] MEDS ORDERED: INFLUENZA ADMINISTRATION CHARGE ONE (08:30)
[2019-07-12] MEDS ORDERED: INFLUENZA VIRUS QUAD VACCINE 0.5 ML SYR IM ONE (08:30)
[2019-07-12] MEDS: PREGABALIN 75 MG CAP PO SCH ×2 (08:33→21:11)
[2019-07-12] MEDS: clonazePAM 0.5 MG TAB PO SCH ×3 (08:33→21:11)
[2019-07-12] MEDS: FLUOXETINE HCL 20 MG CAP PO SCH (08:34)
[2019-07-12 10:02] LABS: Partial Thromboplastin Time 80.2 Seconds (21.0-31.0)
[2019-07-12] MEDS: ONDANSETRON INJ 2 MG/ML 2 ML VIAL IV PRN (14:51)
[2019-07-12] MEDS ORDERED: CALCIUM GLUCONATE 10% 1,000 MG in SODIUM CHLORIDE 0.9% 50 ML IV ONE (15:00)
[2019-07-12] MEDS ORDERED: MAGNESIUM SULFATE / D5W 1 GM/100 ML BAG IV ONE (15:00)
--- NOTE | 2019-07-12 15:55 | Hospitalist Progress Note ---
Date of Service July 12, 2019 Assessment & Plan (1) Pulmonary embolism: Acute pulmonary embolism without cor pulmonale Acute deep vein thrombosis of right lower extremity (right popliteal and right posterior tibial vein) -History of thromboembolism at age 34, was on coumadin for 7 years and then off coumadin -recent March 2019 hospitalization -This is a 44-year-old female who presents with low grade fever at home and also abdominal pain, chest pain, shortness of breath on 07/11/19 -Right lower lobe pulmonary embolus on abdominal CT scan on 07/11/19 and confirmatory source thromboembolism as venous ultrasound of Occlusive deep venous thrombus within the right popliteal and posterior tibial vein -echocardiogram 07/12/19: normal ejection fraction, and normal wall motion -patient is to continue heparin IV, first dose of coumadin 5 mg daily to be started on 07/12/19 and bridge to goal therapeutic INR of 2 to 3. (had considered Xarelto or Eliquis but potential drug interaction with home dose of carbamazepine which can lower efficacy of medications) History of bipolar disorder -Continue home dose Tegretol (carbamazepine) and fluoxetine and Klonopin History of Intraductal papillary mucinous neoplasm (IPMN) - Intraductal papillary mucinous neoplasm (IPMN) diagnosed from recent March 2019 abdominal surgery and incision and drainage for pancreatic mass, abscess abdominal incision -patient's umbilical area continues to need dressing changes from March 2017 surgical interventions -wound culture was taken on this admission -wound care nurse has seen patient on 07/12/19 and offered instructions for wound care clinic follow up after hospital stay -believe that the wound culture will contain skin nallely and its value on antibiotic treatment is low yield Gastroesophageal reflux disease -on omeprazole. mild hypokalemia Hand cramps -admission potassium 3.4 and admission physician gave potassium supplements -given IV magnesium and IV calcium gluconate to trial to relieve hand cramps History of Migraine headaches -sumatriptan as needed. Deep venous thrombosis prophylaxis. Starting on IV heparin. Subjective during my exam, the patient's heart rates in the 80s. patient was not in acute distress. sometimes she has pleuritic chest discomfort. breathing generally comfortable on room air. she reported hand cramps to the nurse. no dizziness. no lightheadedness. no acute abdominal pain. heparin drip IV is running. we discussed anticoagulation plans. Physical Exam Constitutional: cooperative Eyes: PERRL, conjunctivae normal, anicteric sclerae EOM intact bilaterally ENMT: external ear and nose normal, oropharynx normal Neck: normal visual inspection Respiratory: normal respiratory effort, lungs clear to auscultation Cardiovascular: Rate/Rhythm: regular rate and regular rhythm Gastrointestinal (Abdomen): Inspection/Auscultation: normal bowel sounds Percussion/Palpation: abdomen soft dressing over umbilicus Musculoskeletal: Head/Neck/Chest: normocephalic and head atraumatic Neurologic: PERRL, EOMI, accommodation nl, no face palsy, no dysarthria Psychiatric: A+Ox3, euthymic affect Results & Data Vital Signs (Past 12 Hours) Vital Signs Temp Pulse Pulse Resp BP Pulse Ox 07/12/19 11:45 36.8 C 120 H 20 99/63 L 98 07/12/19 09:59 75 105/74 98 07/12/19 08:00 58 L 07/12/19 07:30 36.6 C 58 L 20 122/80 97 07/12/19 04:49 36.6 C 68 20 101/64 95 (1) Pulmonary embolism Acute cor pulmonale presence: unspecified Chronicity: acute Pulmonary embolism type: unspecified Qualified Code(s): I26.99 - Other pulmonary embolism without acute cor pulmonale
[2019-07-12 16:38] LABS: Prothrombin Time 10.6 Seconds (9.0-12.0)
[2019-07-12 16:42] LABS: Partial Thromboplastin Ratio 1.9
[2019-07-12 16:46] LABS: Partial Thromboplastin Time 52.7 Seconds (21.0-31.0)
[2019-07-12] MEDS: WARFARIN SOD 5 MG TAB PO SCH (17:24)
[2019-07-12] MEDS ORDERED: RIVAROXABAN 15 MG TAB PO SCH (21:00)
[2019-07-12] MEDS: ACETAMINOPHEN 325 MG TAB PO PRN (21:08)
[2019-07-12 22:37] LABS: Partial Thromboplastin Ratio 1.9
[2019-07-12 22:54] LABS: Partial Thromboplastin Time 50.7 Seconds (21.0-31.0)
[2019-07-12] MEDS: OXYCODONE HCL IR 5 MG TAB (IMMEDIATE RELEASE) PO PRN (23:55)
[2019-07-13] MEDS: HEPARIN SODIUM/DEXTROSE 25,000 UNITS/500 ML BAG IV SCH (02:06)
[2019-07-13] MEDS: OXYCODONE HCL IR 5 MG TAB (IMMEDIATE RELEASE) PO PRN ×4 (04:45→23:49)
[2019-07-13 04:57] LABS: Basophils # (auto) 0.02 K/uL (0-0.2); Basophils % (auto) 0.3 %; Eosinophils # (auto) 0.27 K/uL (0-0.5); Eosinophils % (auto) 4.7 %; Hematocrit (blood only) 31.5 % (37-47); Hemoglobin 10.4 g/dL (12.0-16.0); Immature Granulocytes # (auto) 0.01 K/uL (0.00-0.02); Immature Granulocytes % (auto) 0.2 %; Lymphocytes # (auto) 2.38 K/uL (1.2-3.4); Lymphocytes % (auto) 41.5 %; Mean Corpuscular Hemoglobin 31.7 pg (25-34); Mean Platelet Volume 8.8 fL (7.4-10.4); Monocytes # (auto) 0.56 K/uL (0.11-0.59); Monocytes % (auto) 9.8 %; Neutrophils % (auto) 43.5 %; Platelet Count 314 K/uL (130-400); RDW Coefficient of Variation 13.5 % (11.5-14.5); RDW Standard Deviation 47.3 fL (36.4-46.3); Red Blood Count 3.28 M/uL (4.2-5.4); White Blood Count 5.74 K/uL (4.8-10.8)
[2019-07-13 05:08] LABS: Partial Thromboplastin Ratio 1.5; Partial Thromboplastin Time 39.3 Seconds (21.0-31.0); Prothrombin Time 10.7 Seconds (9.0-12.0)
[2019-07-13] MEDS ORDERED: HEPARIN IV BOLUS 5,000 UNITS in SYRINGE 0 ML IV ONE (05:45)
[2019-07-13] MEDS ORDERED: Nursing to Pharmacy Communication ONE (06:13)
[2019-07-13 06:20] LABS: Albumin Globulin Ratio 0.8 (0.9-2); Albumin Level 2.9 gm/dl (3.4-5.0); BUN Creatinine Ratio 12.1 (10-20); Bilirubin,Total 0.2 mg/dl (0.2-1); Calcium 8.1 mg/dl (8.5-10.1); Creatinine Clr Calc Pharmacy 103.3 ml/min; Est GFR (African American) 110.4; Est GFR (Non-African American) 95.2; Globulin 3.5 gm/dl (2.5-4.0); Potassium 4.1 mmol/L (3.5-5.1); Total Protein 6.4 gm/dl (6.4-8.2)
--- NOTE | 2019-07-13 07:05 | CT Scan Report ---
CT head/brain wo con CLINICAL HISTORY: 44 years-old Female presenting with headache and sensation of facial swelling. TECHNIQUE: Multidetector CT imaging of the head was performed without the use of intravenous contrast . IV contrast: None. One or more dose lowering techniques were used consistent with the principles of ALARA (as low as reasonably achievable), including automatic exposure control, mA or kV adjustment t o individual patient size, and/or use of iterative reconstruction. COMPARISON: 07/12/2018. CT DOSE (mGy.cm): The estimated cumulative dose is 537.48 mGy.cm. 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 Ventricles and sulci normal in size. No hemorrhage. Brain parenchyma normal in appearance with preser richie borrero-white differentiation. No acute territorial infarct. No mass effect or midline shift. No ext ra-axial fluid collection. Paranasal sinuses and mastoid air cells clear. Calvarium intact. IMPRESSION: 1. No acute intracranial abnormality. Electronically signed by: Tino Eric M.D. 07/13/2019 7:04 AM
[2019-07-13] MEDS: PREGABALIN 75 MG CAP PO SCH ×2 (08:35→20:30)
[2019-07-13] MEDS: carBAMazepine 200 MG TABLET PO SCH ×2 (08:35→20:26)
[2019-07-13] MEDS: clonazePAM 0.5 MG TAB PO SCH ×3 (08:35→20:30)
[2019-07-13] MEDS: NICOTINE 7 MG/24 HR TDSY TD SCH (08:36)
[2019-07-13] MEDS: FLUOXETINE HCL 20 MG CAP PO SCH (08:36)
[2019-07-13] MEDS ORDERED: SODIUM CHLORIDE 0.9% 1000ML 250 ML IV ONE (12:07)
[2019-07-13] MEDS ORDERED: HYDROmorphone INJ 0.5 MG/0.5 ML SYR IV PRN (12:07)
[2019-07-13 12:28] LABS: Partial Thromboplastin Ratio 3.6
[2019-07-13 12:30] LABS: Partial Thromboplastin Time 98.8 Seconds (21.0-31.0)
--- NOTE | 2019-07-13 12:30 | Hospitalist Progress Note ---
Date of Service July 13, 2019 Assessment & Plan (1) Pulmonary embolism: Acute pulmonary embolism without cor pulmonale Acute deep vein thrombosis of right lower extremity (right popliteal and right posterior tibial vein) -History of thromboembolism at age 34, was on coumadin for 7 years and then off coumadin -recent March 2019 hospitalization -This is a 44-year-old female who presents with low grade fever at home and also abdominal pain, chest pain, shortness of breath on 07/11/19 -Right lower lobe pulmonary embolus on abdominal CT scan on 07/11/19 and confirmatory source thromboembolism as venous ultrasound of Occlusive deep venous thrombus within the right popliteal and posterior tibial vein -echocardiogram 07/12/19: normal ejection fraction, and normal wall motion -patient is to continue heparin IV, first dose of coumadin 5 mg daily to be started on 07/12/19 and bridge to goal therapeutic INR of 2 to 3. (had considered Xarelto or Eliquis but potential drug interaction with home dose of carbamazepine which can lower efficacy of medications) -continue coumadin and heparin IV History of bipolar disorder -Continue home dose Tegretol (carbamazepine) and fluoxetine and Klonopin -counseled in regards to her anxiety History of Intraductal papillary mucinous neoplasm (IPMN) - Intraductal papillary mucinous neoplasm (IPMN) diagnosed from recent March 2019 abdominal surgery and incision and drainage for pancreatic mass, abscess abdominal incision -patient's umbilical area continues to need dressing changes from March 2017 surgical interventions -wound culture was taken on this admission -wound care nurse has seen patient on 07/12/19 and offered instructions for wound care clinic follow up after hospital stay -believe that the wound culture will contain skin nallely and its value on antibiotic treatment is low yield Gastroesophageal reflux disease -on omeprazole. mild hypokalemia Hand cramps -admission potassium 3.4 and admission physician gave potassium supplements. serum potassium is normal as of 07/13/19 labs -given IV magnesium and IV calcium gluconate to trial to relieve hand cramps on 07/12/19 -no further hand discomforts reported since History of Migraine headaches -sumatriptan as needed. Deep venous thrombosis prophylaxis. IV heparin and coumadin Subjective Patient seen and examined. breathing on room air. eating her meals. she reports subjective dehydration to nurse and requested additional pain medications. but not in acute physical distress. she has anxiety about being in the hospital especially with blood clots. her mother at bedside. we discussed long time about mood and current health issues. no abdominal pain. no vomiting. does not report of lightheadedness or dizziness. no hand cramps today Physical Exam Constitutional: cooperative Eyes: PERRL, conjunctivae normal, anicteric sclerae EOM intact bilaterally ENMT: external ear and nose normal, oropharynx normal Neck: normal visual inspection Respiratory: normal respiratory effort, lungs clear to auscultation Cardiovascular: Rate/Rhythm: regular rate and regular rhythm Gastrointestinal (Abdomen): Inspection/Auscultation: normal bowel sounds Percussion/Palpation: abdomen soft Musculoskeletal: Head/Neck/Chest: normocephalic and head atraumatic mild right lower extremity swelling Neurologic: PERRL, EOMI, accommodation nl, no face palsy, no dysarthria Psychiatric: A+Ox3, euthymic affect Results & Data Vital Signs (Past 12 Hours) Vital Signs Temp Pulse Resp BP BP Pulse Ox 07/13/19 11:15 37 C 86 16 112/73 96 07/13/19 07:55 36.8 C 82 18 118/78 97 07/13/19 07:00 36.5 C 78 18 102/60 96 07/13/19 04:00 36.6 C 66 20 120/73 96 (1) Pulmonary embolism Acute cor pulmonale presence: unspecified Chronicity: acute Pulmonary embolism type: unspecified Qualified Code(s): I26.99 - Other pulmonary embolism without acute cor pulmonale
[2019-07-13] MEDS: POLYETHYLENE (MIRALAX) 17 GM PACK PO PRN (15:33)
[2019-07-13] MEDS: WARFARIN SOD 5 MG TAB PO SCH (16:06)
[2019-07-13 18:58] LABS: Partial Thromboplastin Ratio 1.8
[2019-07-13 19:03] LABS: Partial Thromboplastin Time 48.4 Seconds (21.0-31.0)
[2019-07-13] MEDS ORDERED: LACTATED RINGER'S 1,000 ML IV ONE (19:52)
--- NOTE | 2019-07-13 20:28 | CT Scan Report ---
HEAD CT NONCONTRAST CT DOSE: 537.48 mGy.cm HISTORY: Headache. Dizziness. TECHNIQUE: Multiaxial CT images of the head were performed without the use of intravenous contrast. A utomated exposure control was utilized for this study. A dose lowering technique was utilized adheri ng to the principles of ALARA. Comparison: Head CT 07/13/2019. Findings: The paranasal sinuses and mastoid air cells are clear. The calvarium and skull base are int act. The ventricles and sulci are within normal limits. There is no mass, hematoma, midline shift, or acute infarct. Impression: No acute intracranial abnormality. Electronically signed by: Shaun Chavira M.D. 07/13/2019 8:26 PM
[2019-07-13] MEDS ORDERED: LACTULOSE SYRUP 30 GM/45 ML UDP PO STA (23:49)
[2019-07-14] MEDS: DOCUSATE SODIUM/SENNA 50/8.6MG TAB PO SCH ×2 (00:16→07:59)
[2019-07-14] MEDS: HEPARIN SODIUM/DEXTROSE 25,000 UNITS/500 ML BAG IV SCH ×2 (01:04→22:18)
[2019-07-14] MEDS: ONDANSETRON INJ 2 MG/ML 2 ML VIAL IV PRN ×2 (03:34→12:56)
[2019-07-14] MEDS: OXYCODONE HCL IR 5 MG TAB (IMMEDIATE RELEASE) PO PRN ×5 (04:12→22:36)
[2019-07-14 06:17] LABS: Basophils # (auto) 0.03 K/uL (0-0.2); Basophils % (auto) 0.6 %; Eosinophils # (auto) 0.24 K/uL (0-0.5); Eosinophils % (auto) 4.6 %; Hematocrit (blood only) 30.1 % (37-47); Hemoglobin 10.3 g/dL (12.0-16.0); Immature Granulocytes # (auto) 0.01 K/uL (0.00-0.02); Immature Granulocytes % (auto) 0.2 %; Lymphocytes # (auto) 2.18 K/uL (1.2-3.4); Lymphocytes % (auto) 41.7 %; Mean Corpuscular Hemoglobin 32.5 pg (25-34); Mean Corpuscular Hgb Conc 34.2 g/dL (32-36); Mean Platelet Volume 8.7 fL (7.4-10.4); Monocytes # (auto) 0.65 K/uL (0.11-0.59); Monocytes % (auto) 12.4 %; Neutrophils # (auto) 2.12 K/uL (1.4-6.5); Neutrophils % (auto) 40.5 %; Platelet Count 266 K/uL (130-400); RDW Coefficient of Variation 13.3 % (11.5-14.5); RDW Standard Deviation 46.4 fL (36.4-46.3); Red Blood Count 3.17 M/uL (4.2-5.4); White Blood Count 5.23 K/uL (4.8-10.8)
[2019-07-14 06:48] LABS: INR 1.3 (0.9-1.1); Partial Thromboplastin Ratio 2.3
[2019-07-14 06:55] LABS: BUN Creatinine Ratio 10.7 (10-20); Calcium 8.4 mg/dl (8.5-10.1); Est GFR (African American) 121.8; Est GFR (Non-African American) 105.1; Potassium 3.7 mmol/L (3.5-5.1)
[2019-07-14 06:59] LABS: Partial Thromboplastin Time 61.5 Seconds (21.0-31.0)
[2019-07-14] MEDS: PREGABALIN 75 MG CAP PO SCH ×2 (07:58→20:23)
[2019-07-14] MEDS: clonazePAM 0.5 MG TAB PO SCH ×3 (07:59→20:23)
[2019-07-14] MEDS: FLUOXETINE HCL 20 MG CAP PO SCH (07:59)
[2019-07-14] MEDS: NICOTINE 7 MG/24 HR TDSY TD SCH (07:59)
[2019-07-14] MEDS: carBAMazepine 200 MG TABLET PO SCH ×2 (08:00→20:23)
[2019-07-14] MEDS: DOXYCYCLINE HYCLATE 100 MG CAP PO SCH ×2 (12:56→20:22)
[2019-07-14] MEDS ORDERED: LACTULOSE SYRUP 30 GM/45 ML UDP PO STA (14:21)
--- NOTE | 2019-07-14 14:35 | Hospitalist Progress Note ---
Date of Service July 14, 2019 Assessment & Plan (1) Pulmonary embolism: Acute pulmonary embolism without cor pulmonale Acute DVT of Right lower extremity H/O Thromboembolism at age 34, was on coumadin for 7 years and then off coumadin Venous Doppler:Occlusive deep venous thrombus within the right popliteal and posterior tibial veins. Right lower lobe pulmonary embolus on abdominal CT scan on 07/11/19 ECHO: Normal ejection fraction, and normal wall motion Not a candidate for NOACs due to interaction with carbamazepine Continue IV Heparin, Coumadin Monitor INR: 1.3 Saturating well on room air Constipation Continue bowel regimen H/O Bipolar disorder Continue carbamazepine, fluoxetine and Klonopin counseled in regards to her anxiety H/O Intraductal papillary mucinous neoplasm (IPMN) S/P Abdominal surgery and incision and drainage for pancreatic mass, abscess in March 2019 Continue wound dressing Wound Culture: Staph. aureus Started on Doxycycline for possible wound infection GERD on PPI Hypokalemia Resolved Monitor electrolytes H/O Migraine headaches sumatriptan PRN DVT Px: IV heparin, Coumadin Subjective Patient is seen and examined at bedside Reports constipation Also states having pleuritic chest pain intermittently Also states having some discharge from abdominal abscess Requests additional pain medications Offers no other complaints Review of Systems Review of Systems: All systems reviewed & are unremarkable except as noted in HPI & below Physical Exam Physical Exam: Physical Exam: Vitals signs as noted above General Appearance:Moderately built and nourished, no apparent distress Head: normocephalic, Atraumatic Eyes: normal inspection, EOMI Neck: supple, Trachea midline Respiratory/Chest: Normal breath sounds, CTA Cardiovascular: S1, S2, No murmur Abdomen/GI:Soft, Non tender, Bowel sounds present, + Abd ascess in dressing Extremities/Musculoskelatal:normal inspection, RLE swelling Neurologic/Psych:AAOX3, grossly no focal neurological deficits Skin: normal color, warm Results & Data Vital Signs (Past 12 Hours) Vital Signs Temp Pulse Resp BP Pulse Ox 07/14/19 08:11 36.6 C 73 20 99/57 L 97 Laboratory Results Short CBC 07/14/19 Range/Units 06:05 WBC 5.23 (4.8-10.8) K/uL Hgb 10.3 L (12.0-16.0) g/dL Hct 30.1 L (37-47) % Plt Count 266 (130-400) K/uL BMP 07/14/19 06:05 Sodium 140 Potassium 3.7 Chloride 107 Carbon Dioxide 31 BUN 8 Creatinine 0.71 Glucose 88 Calcium 8.4 L (1) Pulmonary embolism Acute cor pulmonale presence: unspecified Chronicity: acute Pulmonary embolism type: unspecified Qualified Code(s): I26.99 - Other pulmonary embolism without acute cor pulmonale
[2019-07-14] MEDS: WARFARIN SOD 5 MG TAB PO SCH (16:35)
[2019-07-14] MEDS: LACTOBACILLUS ACIDOPHILUS (FLORANEX) TAB PO SCH ×2 (16:36→20:22)
[2019-07-14] MEDS: ACETAMINOPHEN 325 MG TAB PO PRN (22:36)
[2019-07-15] MEDS: OXYCODONE HCL IR 5 MG TAB (IMMEDIATE RELEASE) PO PRN ×4 (04:44→22:07)
[2019-07-15 07:11] LABS: Hematocrit (blood only) 32.5 % (37-47); Mean Corpuscular Hemoglobin 32.4 pg (25-34); Mean Corpuscular Hgb Conc 33.8 g/dL (32-36); Mean Corpuscular Volume 95.9 fL (80-100); Mean Platelet Volume 9.1 fL (7.4-10.4); Platelet Count 307 K/uL (130-400); RDW Coefficient of Variation 13.4 % (11.5-14.5); RDW Standard Deviation 46.9 fL (36.4-46.3); Red Blood Count 3.39 M/uL (4.2-5.4); White Blood Count 4.63 K/uL (4.8-10.8)
[2019-07-15 07:27] LABS: INR 1.6 (0.9-1.1); Partial Thromboplastin Ratio 2.8; Prothrombin Time 16.3 Seconds (9.0-12.0)
[2019-07-15 07:29] LABS: Partial Thromboplastin Time 75.5 Seconds (21.0-31.0)
[2019-07-15] MEDS: PREGABALIN 75 MG CAP PO SCH ×2 (09:02→20:52)
[2019-07-15] MEDS: clonazePAM 0.5 MG TAB PO SCH ×3 (09:02→20:51)
[2019-07-15] MEDS: carBAMazepine 200 MG TABLET PO SCH ×2 (09:02→20:49)
[2019-07-15] MEDS: DOCUSATE SODIUM/SENNA 50/8.6MG TAB PO SCH (09:03)
[2019-07-15] MEDS: NICOTINE 7 MG/24 HR TDSY TD SCH (09:03)
[2019-07-15] MEDS: FLUOXETINE HCL 20 MG CAP PO SCH (09:03)
[2019-07-15] MEDS: DOXYCYCLINE HYCLATE 100 MG CAP PO SCH ×2 (09:03→20:48)
[2019-07-15] MEDS: LACTOBACILLUS ACIDOPHILUS (FLORANEX) TAB PO SCH ×4 (09:03→20:47)
[2019-07-15] MEDS ORDERED: [UNRECOGNIZED DRUG - REMARK] ONE ×2 (10:00)
[2019-07-15] MEDS: ONDANSETRON INJ 2 MG/ML 2 ML VIAL IV PRN ×2 (12:58→19:43)
[2019-07-15 14:15] LABS: Partial Thromboplastin Ratio 2.1
[2019-07-15 15:18] LABS: BUN Creatinine Ratio 9.5 (10-20); Calcium 8.7 mg/dl (8.5-10.1); Creatinine Clr Calc Pharmacy 90.4 ml/min; Est GFR (African American) 93.9; Potassium 3.6 mmol/L (3.5-5.1)
[2019-07-15] MEDS: WARFARIN SOD 5 MG TAB PO SCH (15:58)
--- NOTE | 2019-07-15 18:30 | Hospitalist Progress Note ---
Date of Service July 15, 2019 Assessment & Plan (1) Pulmonary embolism: Acute pulmonary embolism without cor pulmonale Acute DVT of Right lower extremity H/O Thromboembolism at age 34, was on coumadin for 7 years and then off coumadin Venous Doppler:Occlusive deep venous thrombus within the right popliteal and posterior tibial veins. Right lower lobe pulmonary embolus on abdominal CT scan on 07/11/19 ECHO: Normal ejection fraction, and normal wall motion Not a candidate for NOACs due to interaction with carbamazepine Continue IV Heparin, Coumadin Monitor INR: 1.6 today Saturating well on room air Constipation Continue bowel regimen H/O Bipolar disorder Continue carbamazepine, fluoxetine and Klonopin counseled in regards to her anxiety H/O Intraductal papillary mucinous neoplasm (IPMN) S/P Abdominal surgery and incision and drainage for pancreatic mass, abscess in March 2019 Continue wound dressing Wound Culture: Staph. aureus Continue Doxycycline for possible wound infection Day #2 GERD on PPI Hypokalemia Resolved Monitor electrolytes H/O Migraine headaches sumatriptan PRN DVT Px: IV heparin, Coumadin Code Status Full Code Disposition Expect to discharge home when stable Subjective Patient is seen and examined at bedside Had transient flank pain earlier today which resolved Has intermittent pleuritic chest pain which increases with breathing On heparin drip No bleeding issues Family at bedside Review of Systems Review of Systems: All systems reviewed & are unremarkable except as noted in HPI & below Physical Exam Physical Exam: Physical Exam: Vitals signs as noted above General Appearance:Moderately built and nourished, no apparent distress Head: normocephalic, Atraumatic Eyes: normal inspection, EOMI Neck: supple, Trachea midline Respiratory/Chest: Normal breath sounds, CTA Cardiovascular: S1, S2, No murmur Abdomen/GI:Soft, Non tender, Bowel sounds present, + Abd ascess in dressing Extremities/Musculoskelatal:normal inspection, RLE swelling Neurologic/Psych:AAOX3, grossly no focal neurological deficits Skin: normal color, warm Results & Data Vital Signs (Past 12 Hours) Vital Signs Temp Pulse Resp BP BP Pulse Ox 07/15/19 15:32 36.8 C 76 20 137/83 98 07/15/19 07:42 36.8 C 71 17 116/73 98 Laboratory Results Short CBC 07/15/19 Range/Units 06:15 WBC 4.63 L (4.8-10.8) K/uL Hgb 11.0 L (12.0-16.0) g/dL Hct 32.5 L (37-47) % Plt Count 307 (130-400) K/uL BMP 07/15/19 06:15 Sodium 139 Potassium 3.6 Chloride 104 Carbon Dioxide 29 BUN 8 Creatinine 0.88 Glucose 81 Calcium 8.7 (1) Pulmonary embolism Acute cor pulmonale presence: unspecified Chronicity: acute Pulmonary embolism type: unspecified Qualified Code(s): I26.99 - Other pulmonary embolism without acute cor pulmonale
[2019-07-15] MEDS: HEPARIN SODIUM/DEXTROSE 25,000 UNITS/500 ML BAG IV SCH (22:05)
[2019-07-16] MEDS: OXYCODONE HCL IR 5 MG TAB (IMMEDIATE RELEASE) PO PRN ×4 (05:36→21:11)
[2019-07-16 05:37] LABS: Hematocrit (blood only) 34.2 % (37-47); Hemoglobin 11.6 g/dL (12.0-16.0); Mean Corpuscular Hemoglobin 32.1 pg (25-34); Mean Corpuscular Hgb Conc 33.9 g/dL (32-36); Mean Corpuscular Volume 94.7 fL (80-100); Mean Platelet Volume 8.8 fL (7.4-10.4); Platelet Count 290 K/uL (130-400); RDW Coefficient of Variation 13.3 % (11.5-14.5); Red Blood Count 3.61 M/uL (4.2-5.4); White Blood Count 5.05 K/uL (4.8-10.8)
[2019-07-16 05:47] LABS: INR 1.9 (0.9-1.1); Prothrombin Time 18.8 Seconds (9.0-12.0)
[2019-07-16 07:43] LABS: Partial Thromboplastin Ratio 2.6
[2019-07-16] MEDS ORDERED: COUGH DROP (SUGAR FREE) LOZ 24 LOZ/1 BOX BUCCAL PRN (07:43)
[2019-07-16 07:46] LABS: Partial Thromboplastin Time 69.5 Seconds (21.0-31.0)
[2019-07-16] MEDS: ACETAMINOPHEN 325 MG TAB PO PRN ×2 (07:46→15:46)
[2019-07-16] MEDS: LACTOBACILLUS ACIDOPHILUS (FLORANEX) TAB PO SCH ×4 (07:47→20:07)
[2019-07-16] MEDS: carBAMazepine 200 MG TABLET PO SCH ×2 (07:47→20:07)
[2019-07-16] MEDS: PREGABALIN 75 MG CAP PO SCH ×2 (07:47→20:07)
[2019-07-16] MEDS: clonazePAM 0.5 MG TAB PO SCH ×3 (07:47→20:07)
[2019-07-16] MEDS: DOXYCYCLINE HYCLATE 100 MG CAP PO SCH ×2 (07:48→20:07)
[2019-07-16] MEDS: DOCUSATE SODIUM/SENNA 50/8.6MG TAB PO SCH (07:48)
[2019-07-16] MEDS: FLUOXETINE HCL 20 MG CAP PO SCH (07:48)
[2019-07-16] MEDS: NICOTINE 7 MG/24 HR TDSY TD SCH (07:49)
[2019-07-16 14:48] LABS: Partial Thromboplastin Ratio 2.1
[2019-07-16 14:53] LABS: Partial Thromboplastin Time 57.2 Seconds (21.0-31.0)
[2019-07-16] MEDS: WARFARIN SOD 5 MG TAB PO SCH (15:48)
--- NOTE | 2019-07-16 18:41 | Hospitalist Progress Note ---
Date of Service July 16, 2019 Assessment & Plan (1) Pulmonary embolism: Acute pulmonary embolism without cor pulmonale Acute DVT of Right lower extremity H/O Thromboembolism at age 34, was on Coumadin for 7 years and then off coumadin Venous Doppler:Occlusive deep venous thrombus within the right popliteal and posterior tibial veins. Right lower lobe pulmonary embolus on abdominal CT scan on 07/11/19 ECHO: Normal ejection fraction, and normal wall motion Not a candidate for NOACs due to interaction with carbamazepine Continue IV Heparin, Coumadin Monitor INR: 1.9 today Saturating well on room air Pain control Constipation Continue bowel regimen Encourage to ambulate H/O Bipolar disorder Continue carbamazepine, fluoxetine and Klonopin counseled in regards to her anxiety H/O Intraductal papillary mucinous neoplasm (IPMN) S/P Abdominal surgery and incision and drainage for pancreatic mass, abscess in March 2019 Continue wound dressing Wound Culture: Staph. aureus Continue Doxycycline for possible wound infection Day #3 GERD on PPI Hypokalemia Resolved Monitor electrolytes H/O Migraine headaches sumatriptan PRN DVT Px: IV heparin, Coumadin Code Status Full Code Disposition Expect to discharge home when stable Subjective Patient is seen and examined at bedside Anxious intermittently States having pleuritic chest pain intermittently as well On heparin drip, No bleeding issues Family at bedside Offers no other complaints Review of Systems Review of Systems: All systems reviewed & are unremarkable except as noted in HPI & below Physical Exam Physical Exam: Physical Exam: Vitals signs as noted above General Appearance:Moderately built and nourished, no apparent distress Head: normocephalic, Atraumatic Eyes: normal inspection, EOMI Neck: supple, Trachea midline Respiratory/Chest: Normal breath sounds, CTA Cardiovascular: S1, S2, No murmur Abdomen/GI:Soft, Non tender, Bowel sounds present, + Abd ascess in dressing Extremities/Musculoskelatal:normal inspection, RLE swelling Neurologic/Psych:AAOX3, grossly no focal neurological deficits Skin: normal color, warm Results & Data Vital Signs (Past 12 Hours) Vital Signs Temp Pulse Resp BP BP Pulse Ox 07/16/19 15:57 37.1 C 88 19 132/84 94 07/16/19 15:44 85 97 07/16/19 07:57 36.6 C 71 16 118/75 96 Laboratory Results Short CBC 07/16/19 Range/Units 05:20 WBC 5.05 (4.8-10.8) K/uL Hgb 11.6 L (12.0-16.0) g/dL Hct 34.2 L (37-47) % Plt Count 290 (130-400) K/uL (1) Pulmonary embolism Acute cor pulmonale presence: unspecified Chronicity: acute Pulmonary embolism type: unspecified Qualified Code(s): I26.99 - Other pulmonary embolism without acute cor pulmonale
[2019-07-16] MEDS: HEPARIN SODIUM/DEXTROSE 25,000 UNITS/500 ML BAG IV SCH (22:52)
[2019-07-17] MEDS: OXYCODONE HCL IR 5 MG TAB (IMMEDIATE RELEASE) PO PRN ×5 (01:33→20:09)
[2019-07-17 07:26] LABS: INR 1.9 (0.9-1.1); Partial Thromboplastin Ratio 2.4; Prothrombin Time 18.2 Seconds (9.0-12.0)
[2019-07-17] MEDS: PREGABALIN 75 MG CAP PO SCH ×2 (07:58→21:00)
[2019-07-17] MEDS: LACTOBACILLUS ACIDOPHILUS (FLORANEX) TAB PO SCH ×4 (07:58→20:58)
[2019-07-17] MEDS: clonazePAM 0.5 MG TAB PO SCH ×3 (07:58→21:01)
[2019-07-17] MEDS: DOXYCYCLINE HYCLATE 100 MG CAP PO SCH ×2 (07:59→20:58)
[2019-07-17] MEDS: NICOTINE 7 MG/24 HR TDSY TD SCH (07:59)
[2019-07-17] MEDS: DOCUSATE SODIUM/SENNA 50/8.6MG TAB PO SCH (08:00)
[2019-07-17] MEDS: FLUOXETINE HCL 20 MG CAP PO SCH (08:00)
[2019-07-17] MEDS: carBAMazepine 200 MG TABLET PO SCH ×2 (08:00→20:58)
[2019-07-17] MEDS: POLYETHYLENE (MIRALAX) 17 GM PACK PO PRN (08:05)
[2019-07-17 09:27] LABS: INR 1.8 (0.9-1.1); Prothrombin Time 17.5 Seconds (9.0-12.0)
[2019-07-17] MEDS ORDERED: SODIUM CHLORIDE 0.65% NA SOLN 45 ML (OCEAN) PRN (12:05)
[2019-07-17] MEDS ORDERED: WARFARIN SOD 7.5 MG TAB PO SCH (16:00)
[2019-07-17] MEDS ORDERED: ALUMINUM/MAGNESIUM/SIMETH (MAALOX MAX) 30 ML UDC PO PRN (16:05)
--- NOTE | 2019-07-17 16:17 | Hospitalist Progress Note ---
Date of Service July 17, 2019 Assessment & Plan (1) Pulmonary embolism: Acute pulmonary embolism without cor pulmonale Acute DVT of Right lower extremity H/O Thromboembolism at age 34, was on Coumadin for 7 years and then off coumadin Venous Doppler:Occlusive deep venous thrombus within the right popliteal and posterior tibial veins. Right lower lobe pulmonary embolus on abdominal CT scan on 07/11/19 ECHO: Normal ejection fraction, and normal wall motion Not a candidate for NOACs due to interaction with carbamazepine Continue IV Heparin, Coumadin Monitor INR: 1.8 today Saturating well on room air Pain control Advised to minimize Greens in diet Increase coumadin to 7.5 mg today Constipation Continue bowel regimen Encourage to ambulate H/O Bipolar disorder Continue carbamazepine, fluoxetine and Klonopin counseled in regards to her anxiety H/O Intraductal papillary mucinous neoplasm (IPMN) S/P Abdominal surgery and incision and drainage for pancreatic mass, abscess in March 2019 Continue wound dressing Wound Culture: Staph. aureus Continue Doxycycline for possible wound infection Day #4 GERD on PPI Hypokalemia Resolved Monitor electrolytes H/O Migraine headaches sumatriptan PRN DVT Px: IV heparin, Coumadin Code Status Full Code Disposition Expect to discharge home when stable Subjective Patient is seen and examined at bedside Reports sore throat Right leg pain/swelling much improved Pleuritic chest pain is better On heparin drip, No bleeding issues Admits to eating lot of Greens which could have interfered with INR Denies cough, wheezing, fever Review of Systems Review of Systems: All systems reviewed & are unremarkable except as noted in HPI & below Physical Exam Physical Exam: Physical Exam: Vitals signs as noted above General Appearance:Moderately built and nourished, no apparent distress Head: normocephalic, Atraumatic Eyes: normal inspection, EOMI Neck: supple, Trachea midline Respiratory/Chest: Normal breath sounds, CTA Cardiovascular: S1, S2, No murmur Abdomen/GI:Soft, Non tender, Bowel sounds present, + Abd abscess in dressing Extremities/Musculoskelatal:normal inspection, RLE swelling Neurologic/Psych:AAOX3, grossly no focal neurological deficits Skin: normal color, warm Results & Data Vital Signs (Past 12 Hours) Vital Signs Temp Pulse Resp BP Pulse Ox 07/17/19 14:56 36.8 C 92 H 18 128/81 97 07/17/19 07:48 36.7 C 71 20 106/72 97 (1) Pulmonary embolism Acute cor pulmonale presence: unspecified Chronicity: acute Pulmonary embolism type: unspecified Qualified Code(s): I26.99 - Other pulmonary embolism without acute cor pulmonale
[2019-07-17] MEDS: ACETAMINOPHEN 325 MG TAB PO PRN (19:09)
[2019-07-17] MEDS ORDERED: DOCUSATE SODIUM/SENNA 50/8.6MG TAB PO SCH (21:00)
[2019-07-17] MEDS: HEPARIN SODIUM/DEXTROSE 25,000 UNITS/500 ML BAG IV SCH (23:56)
[2019-07-18] MEDS: OXYCODONE HCL IR 5 MG TAB (IMMEDIATE RELEASE) PO PRN ×4 (00:34→17:44)
[2019-07-18 07:07] LABS: INR 1.7 (0.9-1.1); Partial Thromboplastin Ratio 2.6; Prothrombin Time 16.9 Seconds (9.0-12.0)
[2019-07-18 07:10] LABS: Partial Thromboplastin Time 70.9 Seconds (21.0-31.0)
[2019-07-18] MEDS: HEPARIN SODIUM/DEXTROSE 25,000 UNITS/500 ML BAG IV SCH (07:15)
[2019-07-18] MEDS: carBAMazepine 200 MG TABLET PO SCH ×2 (07:17→20:34)
[2019-07-18] MEDS: DOXYCYCLINE HYCLATE 100 MG CAP PO SCH (07:17)
[2019-07-18] MEDS: NICOTINE 7 MG/24 HR TDSY TD SCH (07:18)
[2019-07-18] MEDS: FLUOXETINE HCL 20 MG CAP PO SCH (07:18)
[2019-07-18] MEDS: LACTOBACILLUS ACIDOPHILUS (FLORANEX) TAB PO SCH ×4 (07:18→20:33)
[2019-07-18] MEDS: clonazePAM 0.5 MG TAB PO SCH ×3 (07:21→20:33)
[2019-07-18] MEDS: PREGABALIN 75 MG CAP PO SCH ×2 (07:21→20:33)
[2019-07-18] MEDS: ONDANSETRON INJ 2 MG/ML 2 ML VIAL IV PRN (10:30)
[2019-07-18] MEDS: ACETAMINOPHEN 325 MG TAB PO PRN ×2 (10:30→16:43)
[2019-07-18] MEDS ORDERED: SIMETHICONE 80 MG CHEW PO PRN (13:18)
[2019-07-18 13:27] LABS: Partial Thromboplastin Ratio 2.1
[2019-07-18 13:35] LABS: Partial Thromboplastin Time 57.4 Seconds (21.0-31.0)
--- NOTE | 2019-07-18 14:17 | Hospitalist Progress Note ---
Date of Service July 18, 2019 Assessment & Plan (1) Pulmonary embolism: Acute pulmonary embolism without cor pulmonale Acute DVT of Right lower extremity H/O Thromboembolism at age 34, was on Coumadin for 7 years and then off coumadin Venous Doppler:Occlusive deep venous thrombus within the right popliteal and posterior tibial veins. Right lower lobe pulmonary embolus on abdominal CT scan on 07/11/19 ECHO: Normal ejection fraction, and normal wall motion Not a candidate for NOACs due to interaction with carbamazepine Continue IV Heparin, Coumadin Monitor INR: 1.7 today Saturating well on room air Pain control Advised to minimize Greens in diet Increase coumadin to 10 mg today No bleeding issues Constipation Continue bowel regimen Encourage to ambulate H/O Bipolar disorder Continue carbamazepine, fluoxetine and Klonopin counseled in regards to her anxiety H/O Intraductal papillary mucinous neoplasm (IPMN) S/P Abdominal surgery and incision and drainage for pancreatic mass, abscess in March 2019 Continue wound dressing Wound Culture: Staph. aureus Continue Augmentin for possible wound infection and for possible sinusitis GERD on PPI Hypokalemia Resolved Monitor electrolytes H/O Migraine headaches sumatriptan PRN DVT Px: IV heparin, Coumadin Code Status Full Code Disposition Expect to discharge home when stable Subjective Patient is seen and examined at bedside Reports Nasal congestion and flatulence INR still subtherapeutic Intermittent Pleuritic chest pain On heparin drip, No bleeding issues Denies cough, wheezing, fever, nausea, abd pain, SOB Review of Systems Review of Systems: All systems reviewed & are unremarkable except as noted in HPI & below Physical Exam Physical Exam: Physical Exam: Vitals signs as noted above General Appearance:Moderately built and nourished, no apparent distress Head: normocephalic, Atraumatic Eyes: normal inspection, EOMI Neck: supple, Trachea midline Respiratory/Chest: Normal breath sounds, CTA Cardiovascular: S1, S2, No murmur Abdomen/GI:Soft, Non tender, Bowel sounds present, + Abd abscess in dressing Extremities/Musculoskelatal:normal inspection, RLE swelling Neurologic/Psych:AAOX3, grossly no focal neurological deficits Skin: normal color, warm Results & Data Vital Signs (Past 12 Hours) Vital Signs Temp Pulse Resp BP Pulse Ox 07/18/19 07:17 36.3 C L 86 20 114/78 97 (1) Pulmonary embolism Acute cor pulmonale presence: unspecified Chronicity: acute Pulmonary embolism type: unspecified Qualified Code(s): I26.99 - Other pulmonary embolism without acute cor pulmonale
[2019-07-18] MEDS: POLYETHYLENE (MIRALAX) 17 GM PACK PO PRN (15:17)
[2019-07-18] MEDS ORDERED: WARFARIN SOD 10 MG TAB PO SCH (16:00)
[2019-07-18] MEDS: AMOXICILLIN/CLAVULANATE 500 MG TAB PO SCH (16:43)
[2019-07-18] MEDS ORDERED: DOCUSATE SODIUM/SENNA 50/8.6MG TAB PO SCH (21:00)
[2019-07-18] MEDS ORDERED: OXYCODONE HCL IR 5 MG TAB (IMMEDIATE RELEASE) PO STA (21:22)
[2019-07-18] MEDS ORDERED: Heparin IV Standard *NO* Bolus ONE (23:12)
[2019-07-19] MEDS: ACETAMINOPHEN 325 MG TAB PO PRN ×2 (00:24→06:34)
[2019-07-19] MEDS: OXYCODONE HCL IR 5 MG TAB (IMMEDIATE RELEASE) PO PRN ×2 (00:37→13:50)
[2019-07-19] MEDS: HEPARIN SODIUM/DEXTROSE 25,000 UNITS/500 ML BAG IV SCH (00:39)
[2019-07-19 07:19] LABS: INR 2.8 (0.9-1.1); Prothrombin Time 26.8 Seconds (9.0-12.0)
[2019-07-19] MEDS: carBAMazepine 200 MG TABLET PO SCH (07:59)
[2019-07-19] MEDS: NICOTINE 7 MG/24 HR TDSY TD SCH (08:00)
[2019-07-19] MEDS: LACTOBACILLUS ACIDOPHILUS (FLORANEX) TAB PO SCH ×2 (08:01→13:45)
[2019-07-19] MEDS: clonazePAM 0.5 MG TAB PO SCH ×2 (08:01→13:55)
[2019-07-19] MEDS: PREGABALIN 75 MG CAP PO SCH (08:01)
[2019-07-19] MEDS: FLUOXETINE HCL 20 MG CAP PO SCH (08:01)
[2019-07-19] MEDS: AMOXICILLIN/CLAVULANATE 500 MG TAB PO SCH (08:02)
[2019-07-19 11:58] VITALS: BP 127/77; PULSE 88; TEMP 97.9; O2SAT 96
--- NOTE | 2019-07-19 13:39 | Hospitalist Progress Note ---
Date of Service July 19, 2019 Assessment & Plan (1) Pulmonary embolism: Acute pulmonary embolism without cor pulmonale Acute DVT of Right lower extremity H/O Thromboembolism at age 34, was on Coumadin for 7 years and then off coumadin Venous Doppler:Occlusive deep venous thrombus within the right popliteal and posterior tibial veins. Right lower lobe pulmonary embolus on abdominal CT scan on 07/11/19 ECHO: Normal ejection fraction, and normal wall motion Not a candidate for NOACs due to interaction with carbamazepine IV Heparin discontinued Continue Coumadin Monitor INR: 2.8 today Saturating well on room air Pain control No bleeding issues Constipation Continue bowel regimen Encourage to ambulate H/O Bipolar disorder Continue carbamazepine, fluoxetine and Klonopin counseled in regards to her anxiety H/O Intraductal papillary mucinous neoplasm (IPMN) S/P Abdominal surgery and incision and drainage for pancreatic mass, abscess in March 2019 Continue wound dressing Wound Culture: Staph. aureus Continue Augmentin for possible wound infection and for possible sinusitis GERD on PPI Hypokalemia Resolved Monitor electrolytes H/O Migraine headaches sumatriptan PRN DVT Px: IV heparin, Coumadin Code Status Full Code Disposition Plan to discharge home today Subjective Patient is seen and examined at bedside Nasal congestion improved INR therapeutic today Intermittent Pleuritic chest pain No bleeding issues Denies cough, wheezing, fever, nausea, abd pain, SOB Review of Systems Review of Systems: All systems reviewed & are unremarkable except as noted in HPI & below Physical Exam Physical Exam: Physical Exam: Vitals signs as noted above General Appearance:Moderately built and nourished, no apparent distress Head: normocephalic, Atraumatic Eyes: normal inspection, EOMI Neck: supple, Trachea midline Respiratory/Chest: Normal breath sounds, CTA Cardiovascular: S1, S2, No murmur Abdomen/GI:Soft, Non tender, Bowel sounds present, + Abd abscess in dressing Extremities/Musculoskelatal:normal inspection, RLE swelling Neurologic/Psych:AAOX3, grossly no focal neurological deficits Skin: normal color, warm Results & Data Vital Signs (Past 12 Hours) Vital Signs Temp Pulse Resp BP BP Pulse Ox 07/19/19 11:55 36.6 C 88 16 127/77 96 07/19/19 07:00 36.3 C L 80 16 126/90 98 (1) Pulmonary embolism Acute cor pulmonale presence: unspecified Chronicity: acute Pulmonary embolism type: unspecified Qualified Code(s): I26.99 - Other pulmonary embolism without acute cor pulmonale
--- NOTE | 2019-07-19 14:10 | Discharge Summary ---
Date of Service July 19, 2019 Admission HPI Per Admitting Provider CHIEF COMPLAINT: Abdominal pain, chest pain, low grade fever. HISTORY OF PRESENT ILLNESS: This is a 44-year-old female with past medical history significant for fibromyalgia, bipolar disorder, migraines, GERD. The patient with pancreatic mass status post resection of mass with partial pancreatectomy and partial colectomy in 03/2010 and in April was seen in [facility] with fever and abdominal pain and nausea and she was transferred to [place] for abdominal abscess and the patient was drained at bedside. She received broad spectrum antibiotics and she was discharged on Bactrim. Her biopsy of the pancreatic mass came as benign as per patient.. 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 Again about last week, she is again having low-grade temperatures like 99 and she is having abdominal pain. She gets abdominal pain on and off. There is still some drainage from her abdominal wound of the abdominal incision site.Lately she is not sleeping well in the night. She does sit up in the bed and she is also having some chest pain and she is short of breath and takes deep breath. She was worried that she is getting again sepsis from her abscess, so she came to the ER. She still has a mild drainage of abdominal wound site but is hemodynamically stable, afebrile, no leukocytosis. CT scan of the abdomen and pelvis was done, which showed midline incisional fluid collection was actually resolved but she also does show right lower lobe pulmonary embolus, so we are called for admission. Currently resting comfortably and hemodynamically stable. Denies any headache, no dizziness. She had some blurred vision, had double vision yesterday but resolved now , had some congestion on the face. No sore throat, no cough, no nausea, no vomiting. Appetite is not that great. No diarrhea or constipation, no blood in stool or black stools. No burning micturition, no hematuria. No swelling. She had some ankle swelling that resolved. No rash. Admission Exam Per Admitting Provider PHYSICAL EXAMINATION: GENERAL: The patient is of moderate build, not in acute distress. VITAL SIGNS: Temperature 36.8, pulse 63, respiratory rate 14, blood pressure 126/95, oxygen 100% on room air. HEENT: No pallor, no icterus. Pupils equal, round, and reactive to light. NECK: No JVD, no neck masses, no carotid bruit. CARDIOVASCULAR: S1, S2 heard, regular rate and rhythm, no murmur, no gallop. RESPIRATORY SYSTEM: Normal AP diameter. No accessory muscle use. No wheezing, no crackles. ABDOMEN: Soft, bowel sounds present. Abdominal wound site, small drainage seen. No guarding, no rigidity. No distention. CENTRAL NERVOUS SYSTEM: Cranial nerves II-XII grossly nonfocal. EXTREMITIES: No edema, no erythema. Principal Diagnosis Acute pulmonary embolism Acute right lower extremity deep vein thrombosis Discharge Data Allergies Allergy/AdvReac Type Severity Reaction Status Date / Time ketorolac Allergy Severe "CHEST Verified 07/11/19 19:45 TIGHTENS, FEEL ANXIOUS". tramadol Allergy Severe "CHEST Verified 07/11/19 19:45 TIGHTENS, FEEL ANXIOUS". cephalexin Allergy Intermediate RASH Verified 07/11/19 19:45 lamotrigine AdvReac Severe "SEVERE Verified 07/11/19 19:45 ANXIETY ATTACK". Consultations 07/11/19 23:15 ED Decision to Admit Stat 07/12/19 00:53 Consult Case Management - Discharge Planning Routine Procedures Performed Venous Doppler: Occlusive deep venous thrombus within the right popliteal and posterior tibial veins. ECHO: Normal ejection fraction, and normal wall motion CT ABD: 1. Right lower lobe pulmonary embolus. This can be confirmed with follow-up dedicated chest CTA. 2. The midline incisional fluid collection has essentially resolved in the interval. Subcutaneous fat stranding and soft tissue thickening along the supraumbilical midline incision. This favors postoperative granulation tissue. Infectious cellulitis/phlegmon could also have a similar appearance in the appropriate clinical setting. 3. No bowel wall thickening or obstruction. 4. Normal appendix. Head CT: No acute intracranial abnormality. Ordered Studies 07/11/19 20:41 CT abd pelvis IV con only Stat 07/12/19 00:53 US venous doppler LE BI Routine 07/12/19 23:46 CT head/brain wo con Urgent 07/13/19 19:53 CT head/brain wo con Urgent Hospital Course (1) Pulmonary embolism: Acute pulmonary embolism without cor pulmonale Acute DVT of Right lower extremity H/O Thromboembolism at age 34, was on Coumadin for 7 years and then off coumadin Venous Doppler:Occlusive deep venous thrombus within the right popliteal and posterior tibial veins. Right lower lobe pulmonary embolus on abdominal CT scan on 07/11/19 ECHO: Normal ejection fraction, and normal wall motion Not a candidate for NOACs due to interaction with carbamazepine IV Heparin discontinued Continue Coumadin Monitor INR: 2.8 today Saturating well on room air Pain control No bleeding issues Constipation Continue bowel regimen Encourage to ambulate H/O Bipolar disorder Continue carbamazepine, fluoxetine and Klonopin counseled in regards to her anxiety H/O Intraductal papillary mucinous neoplasm (IPMN) S/P Abdominal surgery and incision and drainage for pancreatic mass, abscess in March 2019 Continue wound dressing Wound Culture: Staph. aureus Continue Augmentin for possible wound infection and for possible sinusitis GERD on PPI Hypokalemia Resolved Monitor electrolytes H/O Migraine headaches sumatriptan PRN DVT Px: IV heparin, Coumadin Code Status Full Code Disposition Plan to discharge home today Total Time Total Time Spent Total Time Spent (In Minutes): 39 minutes Total Time Includes: Examination of the Patient, Discharge Planning, Medication Reconciliation, Communication With Other Providers and Other Discharge Plan Discharge Items Patient Disposition: Home - Self-Care Reason For Visit: ABDOMINAL AND CHEST PAIN, ILLNESS Discharge Diagnosis: Acute pulmonary embolism Acute right lower extremity deep vein thrombosis Activity: Resume your previous activity Exercise/Sports: Gradually increase as tolerated Non-emergency contact: Primary Care Provider and Surgeon Call non-emergency contact if: you have any medication questions, your symptoms worsen, your pain is not controlled, your pain is worsening, your pain is unusual for you, your pain is concerning for you and you have a fever Follow-up/Referrals: Dawson Edwards MD [Primary Care Provider] - Diet: Heart Healthy Ambulatory Orders: Prothrombin Time INR (Timed) Timeframe: 1 Day Location: Determined by Patient Ordered By: John Aguila Attending Provider Instructions: Follow-up with Dr. Edwards on July 20, 2019 at 11:25 AM Follow-up with the Coumadin clinic on July 20, 2019 for managing of your Coumadin dosing Follow-up with your surgeon/wound clinic for abdominal wound as advised Complete the antibiotic course as prescribed Your target PT/INR is between 2.0 - 3.0 Your PT/INR is 2.8 today (July 19, 2019) Take 4 mg Coumadin today (2018 ). Further Coumadin dosing as per Coumadin clinic Get blood test-PT/INR on July 20, 2019 as advised Avoid Ibuprofen and other NSAIDs while on Coumadin to minimize risk for bleeding Seek immediate medical attention if your symptoms reoccur or worsen Pending Studies at Discharge: No Stand-Alone Forms: My [facility] [employer], Smoking Cessation Medications and DC Order Prescriptions: New amoxicillin-pot clavulanate 500-125 mg Tablet 1 tab PO BIDM Qty: 6 RF: 0 oxycodone 5 mg Tablet 5 mg PO Q8H PRN (Reason: pain) Qty: 6 RF: 0 polyethylene glycol 3350 [Miralax] 17 gram Powder In Packet 17 g PO DAILY PRN (Reason: constipation) 14 Days Qty: 14 RF: 0 Lactobacillus acidoph-L.bulgar [Floranex] 1 million cell Tablet 4 tab PO QIDM 7 Days Qty: 28 RF: 0 sennosides-docusate sodium [Senokot-S] 8.6-50 mg Tablet 1 tab PO HS PRN (Reason: Constipation) 14 Days Qty: 14 RF: 0 warfarin [Coumadin] 2 mg tablet 2 mg PO UD Qty: 60 RF: 0 warfarin [Coumadin] 1 mg tablet 1 mg PO UD Qty: 60 RF: 0 warfarin [Coumadin] 5 mg tablet 5 mg PO UD Qty: 60 RF: 0 Continued sumatriptan succinate 100 mg tablet 100 mg PO DIRECTED PRN (Reason: Migraine Headache) RF: 0 clonazepam 0.5 mg tablet 0.5 mg PO TID RF: 0 carbamazepine 200 mg tablet 400 mg PO BID RF: 0 fluoxetine 20 mg capsule 40 mg PO DAILY RF: 0 pregabalin 75 mg capsule 75 mg PO BID RF: 0 albuterol sulfate [Ventolin HFA] 90 mcg/actuation Hfa Aerosol Inhaler 2 puff INHALATION Q4H PRN (Reason: Shortness Of Breath) RF: 0 omeprazole 20 mg capsule,delayed release(DR/EC) 20 mg PO DAILY PRN (Reason: Acid Reflux) RF: 0 Discontinued ibuprofen 200 mg Tablet 600 mg PO Q6H PRN (Reason: Pain) RF: 0 Discharge Orders: Discharge Order (Routine); Ordered 07/19/19 Ordered By: John Luong Admission Data Admit Date/Time: 07/11/19 23:58 Attending Provider: John Luong Admit Provider: Percy Peterson Primary Care Provider: Dawson Edwards Other Providers: Percy Peterson ; Jesus Butler Other Interventions: Discharge Summary Assessment (RN) Last Done: 07/19/19 14:14 DC Date/Time DO NOT enter until pt leaves facility: 07/19/19 14:40
[2019-07-19] MEDS ORDERED: WARFARIN SOD 4 MG TAB PO SCH (16:00)
== END 2019-07-19 14:40 | disposition home or self-care (01) | DRG 299 ==
LOC: ED 18:41 → SUATTDRO 23:58 → 2N 23:58